=== PATIENT | male | born 1940 | race Caucasian/White ===

== ENCOUNTER → 2022-05-05 | Emergency (ER) | payer SELFPAY | LOC: ER 09:30 | DX: Z53.21 Procedure and treatment not carried out due to patient leaving prior to being seen by health care provider (principal) ==

== ENCOUNTER 2022-09-28 11:46 | Inpatient (IN) | payer MEDICARE, MEDICAID ==
[~2022-09-28] VITALS: Ht 170.2 cm; Wt 86.3 kg
[2022-09-28] MEDS: DEXT 5%/0.45% NACL 1000ML 1,000 ML IV SCH (14:00)
[2022-09-28] MEDS ORDERED: ACETAMINOPHEN 650MG/20.3ML UDC GT PRN (14:00)
[2022-09-28] MEDS ORDERED: ACETAMINOPHEN 650MG SUPP PR PRN (14:00)
[2022-09-28] MEDS ORDERED: LORAZEPAM 2MG/ML CPJ IV PRN (14:00)
[2022-09-28] MEDS ORDERED: IPRATROPIUM/ALBUTEROL 0.5-3(2.5)MG/3ML NEB NEB PRN (14:00)
[2022-09-28] MEDS: THIAMINE HCL 100MG TABLET PO SCH (14:00)
[2022-09-28] MEDS ORDERED: DIPHENHYDRAMINE 50MG/ML VIAL IV PRN (14:00)
[2022-09-28 15:36] LABS: BASOPHILS % 0.7 % (0.0-2.0); EOSINOPHILS % 0.4 % (0.0-5.0); HEMATOCRIT. 31.4 % (42.0-52.0); HEMOGLOBIN. 10.1 g/dL (14.0-18.0); LYMPHOCYTES % 26.4 % (20.0-50.0); MEAN CORPUSCULAR HEMOGLOBIN 28.3 pg (28.0-32.0); MEAN CORPUSCULAR VOLUME 87.6 fL (80.0-94.0); MONOCYTES % 11.7 % (2.0-8.0); NEUTROPHILS % 60.8 % (40.0-76.0); PLATELET 304 x1000/uL (130-400); RED BLOOD CELL COUNT 3.58 mill/uL (4.7-6.1); RED CELL DISTRIBUTION WIDTH 19.1 % (11.6-14.6)
[2022-09-29 03:08] VITALS: BP 132/68
[2022-09-29] MEDS: ACETAMINOPHEN 325MG TABLET PO PRN (06:42)
[2022-09-29] MEDS ORDERED: DEXTROSE 50% WATER 50ML SYRINGE IV PRN (07:00)
[2022-09-29] MEDS: BLOOD SUGAR DIAGNOSTIC STRIP TEST SCH ×4 (07:20→20:37)
[2022-09-29] MEDS: INSULIN LISPRO 100 UNITS/ML SUBCUT SCH ×4 (07:50→20:37)
[2022-09-29 08:00] VITALS: BP 133/68
[2022-09-29] MEDS ORDERED: ENOXAPARIN 30MG/0.3ML SYR SUBCUT SCH (09:00)
[2022-09-29] MEDS ORDERED: ASPIRIN 81MG EC TABLET PO SCH (09:00)
[2022-09-29 09:15] LABS: BASOPHILS % 0.5 % (0.0-2.0); EOSINOPHILS % 0.7 % (0.0-5.0); HEMATOCRIT. 24.3 % (42.0-52.0); HEMOGLOBIN. 8.3 g/dL (14.0-18.0); LYMPHOCYTES % 19.6 % (20.0-50.0); MEAN CORPUSCULAR HEMOGLOBIN 29.4 pg (28.0-32.0); MEAN CORPUSCULAR VOLUME 85.6 fL (80.0-94.0); MEAN PLATELET VOLUME 8.2 fl (7.4-10.4); MONOCYTES % 10.7 % (2.0-8.0); NEUTROPHILS % 68.5 % (40.0-76.0); PLATELET 286 x1000/uL (130-400); RED BLOOD CELL COUNT 2.84 mill/uL (4.7-6.1); RED CELL DISTRIBUTION WIDTH 18.7 % (11.6-14.6)
[2022-09-29] MEDS: DEXT 5%/0.45% NACL 1000ML 1,000 ML IV SCH (10:00)
[2022-09-29] MEDS: FOLIC ACID 1MG TABLET PO SCH (10:32)
[2022-09-29] MEDS: THIAMINE HCL 100MG TABLET PO SCH (10:32)
[2022-09-29 12:00] VITALS: BP 118/74
[2022-09-29] MEDS: HYDROCODONE/ACETAMINOPHEN 5/325MG TABLET PO PRN ×2 (13:59→20:12)
[2022-09-29] MEDS ORDERED: MAGNESIUM 1 G PREMIX 100 ML IV NR (16:00)
[2022-09-29 16:11] VITALS: BP 123/68
[2022-09-29] MEDS ORDERED: GADOTERATE MEGLUMINE 5 MMOL/10 ML VIAL IV ONE (19:59)
[2022-09-29 20:00] VITALS: BP 127/67
[2022-09-29] MEDS ORDERED: NALOXONE HCL 0.4MG/ML VIAL IV PRN (21:00)
[2022-09-29 21:08] LABS: INR 1.4; PROTHROMBIN TIME 14.6 sec (9.6-11.0)
[2022-09-30] VITALS: BP 117/70
[2022-09-30 04:00] VITALS: BP 110/67
[2022-09-30] MEDS: HYDROCODONE/ACETAMINOPHEN 10/325MG TABLET PO PRN (06:45)
[2022-09-30] MEDS: DEXAMETHASONE 4MG TABLET PO SCH ×5 (06:45→23:58)
[2022-09-30] MEDS: INSULIN LISPRO 100 UNITS/ML SUBCUT SCH ×4 (07:50→22:15)
[2022-09-30 08:00] VITALS: BP 96/54
[2022-09-30] MEDS: THIAMINE HCL 100MG TABLET PO SCH (08:05)
[2022-09-30] MEDS: FOLIC ACID 1MG TABLET PO SCH (08:05)
[2022-09-30] MEDS: BLOOD SUGAR DIAGNOSTIC STRIP TEST SCH ×4 (08:06→20:49)
[2022-09-30] MEDS: DEXT 5%/0.45% NACL 1000ML 1,000 ML IV SCH (08:07)
[2022-09-30 08:10] LABS: BASOPHILS % 0.5 % (0.0-2.0); EOSINOPHILS % 0.9 % (0.0-5.0); HEMOGLOBIN. 8.5 g/dL (14.0-18.0); LYMPHOCYTES % 19.3 % (20.0-50.0); MEAN CORPUSCULAR HEMOGLOBIN 28.6 pg (28.0-32.0); MEAN CORPUSCULAR VOLUME 87.1 fL (80.0-94.0); MONOCYTES % 9.5 % (2.0-8.0); NEUTROPHILS % 69.8 % (40.0-76.0); PLATELET 301 x1000/uL (130-400); RED BLOOD CELL COUNT 2.98 mill/uL (4.7-6.1); RED CELL DISTRIBUTION WIDTH 19.4 % (11.6-14.6)
[2022-09-30] MEDS ORDERED: LIDOCAINE HCL 1% 10 MG/ML 10ML VIAL ONE (09:30)
[2022-09-30 12:00] VITALS: BP 120/70
[2022-09-30] MEDS: SODIUM CHLORIDE 0.9% 1,000 ML IV SCH (13:30)
[2022-09-30 16:00] VITALS: BP 110/64
[2022-09-30] MEDS ORDERED: ALBUTEROL (0.083%) 2.5MG/3ML NEB HHN PRN (17:00)
[2022-09-30] MEDS ORDERED: IPRATROPIUM BROMIDE (0.02%) 0.5MG/2.5ML NEB HHN PRN (17:00)
[2022-09-30 20:00] VITALS: BP 115/64
[2022-10-01 00:10] VITALS: BP 110/57
[2022-10-01] MEDS ORDERED: VANCOMYCIN 1500MG in DEXTROSE 5% WATER 250ML IV NR (01:00)
[2022-10-01] MEDS: ACETYLCYSTEINE 200MG/ML 20% VIAL 4ML INH SCH ×2 (01:15→16:50)
[2022-10-01 04:00] VITALS: BP 111/59
[2022-10-01] MEDS: HYDROCODONE/ACETAMINOPHEN 10/325MG TABLET PO PRN ×2 (05:46→23:08)
[2022-10-01] MEDS: DEXAMETHASONE 4MG TABLET PO SCH ×4 (05:46→23:53)
[2022-10-01] MEDS: SODIUM CHLORIDE 0.9% 1,000 ML IV SCH (05:47)
[2022-10-01] MEDS: BLOOD SUGAR DIAGNOSTIC STRIP TEST SCH ×4 (05:47→21:22)
[2022-10-01 06:32] LABS: PROSTRATE SPECIFIC AG TOTAL 2.36 ng/mL (0.0-4.0)
[2022-10-01 06:33] LABS: CARCINO EMBRYONIC ANTIGEN 0.6 ng/ml
[2022-10-01] MEDS: INSULIN LISPRO 100 UNITS/ML SUBCUT SCH ×4 (07:59→21:12)
[2022-10-01 08:00] VITALS: BP 131/71
[2022-10-01] MEDS: LIDOCAINE 5% PATCH TOP SCH (08:42)
[2022-10-01] MEDS: THIAMINE HCL 100MG TABLET PO SCH (08:42)
[2022-10-01] MEDS: LEVOTHYROXINE SODIUM 25MCG TABLET PO SCH (08:42)
[2022-10-01] MEDS: FOLIC ACID 1MG TABLET PO SCH (08:42)
[2022-10-01 12:00] VITALS: BP 135/68
[2022-10-01] MEDS ORDERED: SODIUM CHLORIDE 3% FOR INH 4ML UD NEB INH SCH (13:00)
[2022-10-01] MEDS: ALBUTEROL (0.083%) 2.5MG/3ML NEB HHN SCH ×3 (14:07→21:21)
[2022-10-01] MEDS: IPRATROPIUM BROMIDE (0.02%) 0.5MG/2.5ML NEB HHN SCH ×3 (14:07→21:20)
[2022-10-01] MEDS ORDERED: CEFTRIAXONE 1,000 MG in DEXTROSE 5% WATER 50 ML IV SCH (15:30)
[2022-10-01] MEDS: AZITHROMYCIN 500 MG in DEXT 5% WATER 250 ML IV SCH (15:37)
[2022-10-01 16:00] VITALS: BP 135/77
[2022-10-01 20:00] VITALS: BP 132/64
[2022-10-01] MEDS: METRONIDAZOLE 500MG TABLET PO SCH (21:11)
[2022-10-01] MEDS: CEFEPIME 2,000 MG in DEXT 5% WATER 100 ML IV SCH (22:17)
[2022-10-02] VITALS: BP 126/56
[2022-10-02] MEDS: ALBUTEROL (0.083%) 2.5MG/3ML NEB HHN SCH ×6 (01:15→22:21)
[2022-10-02] MEDS: IPRATROPIUM BROMIDE (0.02%) 0.5MG/2.5ML NEB HHN SCH ×3 (01:15→22:22)
[2022-10-02] MEDS: ACETYLCYSTEINE 200MG/ML 20% VIAL 4ML INH SCH ×2 (01:50→10:10)
[2022-10-02] MEDS ORDERED: VANCOMYCIN 1G PREMIX 200 ML IV SCH (02:00)
[2022-10-02] MEDS: SODIUM CHLORIDE 0.9% 1,000 ML IV SCH (03:45)
[2022-10-02 04:00] VITALS: BP 125/65
[2022-10-02] MEDS: DEXAMETHASONE 4MG TABLET PO SCH ×4 (05:05→22:53)
[2022-10-02] MEDS: DOCUSATE SODIUM 100MG CAPSULE PO PRN (05:05)
[2022-10-02] MEDS: METRONIDAZOLE 500MG TABLET PO SCH ×3 (05:05→20:31)
[2022-10-02] MEDS: BLOOD SUGAR DIAGNOSTIC STRIP TEST SCH ×4 (05:59→20:57)
[2022-10-02 08:00] VITALS: BP 140/67
[2022-10-02] MEDS: INSULIN LISPRO 100 UNITS/ML SUBCUT SCH ×4 (08:10→21:00)
[2022-10-02] MEDS: CEFEPIME 2,000 MG in DEXT 5% WATER 100 ML IV SCH ×2 (08:17→20:31)
[2022-10-02] MEDS: LEVOTHYROXINE SODIUM 25MCG TABLET PO SCH (08:18)
[2022-10-02] MEDS: FOLIC ACID 1MG TABLET PO SCH (08:18)
[2022-10-02] MEDS: LIDOCAINE 5% PATCH TOP SCH (08:18)
[2022-10-02] MEDS: THIAMINE HCL 100MG TABLET PO SCH (08:18)
[2022-10-02 09:00] LABS: BASOPHILS % 0.1 % (0.0-2.0); HEMATOCRIT. 23.4 % (42.0-52.0); HEMOGLOBIN. 7.9 g/dL (14.0-18.0); LYMPHOCYTES % 10.9 % (20.0-50.0); MEAN CORPUSCULAR VOLUME 85.5 fL (80.0-94.0); MEAN PLATELET VOLUME 8.5 fl (7.4-10.4); MONOCYTES % 3.4 % (2.0-8.0); NEUTROPHILS % 85.6 % (40.0-76.0); PLATELET 319 x1000/uL (130-400); RED BLOOD CELL COUNT 2.74 mill/uL (4.7-6.1); RED CELL DISTRIBUTION WIDTH 18.5 % (11.6-14.6)
[2022-10-02 09:10] LABS: IMMUNOGLOBULIN A 708 mg/dL (61-437); IMMUNOGLOBULIN G 1478 mg/dL (603-1613); IMMUNOGLOBULIN M 47 mg/dL (15-143)
[2022-10-02 12:00] VITALS: BP 137/71
[2022-10-02] MEDS ORDERED: VANCOMYCIN 1500MG in DEXTROSE 5% WATER 250ML IV SCH (13:00)
[2022-10-02] MEDS: AZITHROMYCIN 500 MG in DEXT 5% WATER 250 ML IV SCH (15:52)
[2022-10-02 16:00] VITALS: BP 126/75
[2022-10-02 20:00] VITALS: BP 128/67
[2022-10-03] VITALS: BP 135/66
[2022-10-03] MEDS: ALBUTEROL (0.083%) 2.5MG/3ML NEB HHN SCH ×6 (01:51→20:48)
[2022-10-03] MEDS: IPRATROPIUM BROMIDE (0.02%) 0.5MG/2.5ML NEB HHN SCH ×6 (01:52→20:48)
[2022-10-03 04:00] VITALS: BP 130/70
[2022-10-03] MEDS: METRONIDAZOLE 500MG TABLET PO SCH ×3 (05:41→21:37)
[2022-10-03] MEDS: DEXAMETHASONE 4MG TABLET PO SCH ×3 (05:41→19:08)
[2022-10-03 08:00] VITALS: BP 140/72
[2022-10-03] MEDS: BLOOD SUGAR DIAGNOSTIC STRIP TEST SCH ×4 (08:00→21:37)
[2022-10-03] MEDS: INSULIN LISPRO 100 UNITS/ML SUBCUT SCH ×4 (08:01→21:37)
[2022-10-03] MEDS: LIDOCAINE 5% PATCH TOP SCH (08:50)
[2022-10-03] MEDS: LEVOTHYROXINE SODIUM 25MCG TABLET PO SCH (08:51)
[2022-10-03] MEDS: CEFEPIME 2,000 MG in DEXT 5% WATER 100 ML IV SCH ×2 (08:51→21:36)
[2022-10-03] MEDS: THIAMINE HCL 100MG TABLET PO SCH (09:06)
[2022-10-03] MEDS: FOLIC ACID 1MG TABLET PO SCH (09:08)
[2022-10-03] MEDS: ACETYLCYSTEINE 200MG/ML 20% VIAL 4ML INH SCH ×2 (10:25→16:29)
[2022-10-03 12:00] VITALS: BP 141/72
[2022-10-03] MEDS: AZITHROMYCIN 500 MG in DEXT 5% WATER 250 ML IV SCH (14:30)
[2022-10-03 16:00] VITALS: BP 148/72
[2022-10-03 20:00] VITALS: BP 140/74
[2022-10-03] MEDS: ACETAMINOPHEN 325MG TABLET PO PRN (21:37)
[2022-10-04] VITALS: BP 140/72
[2022-10-04] MEDS: IPRATROPIUM BROMIDE (0.02%) 0.5MG/2.5ML NEB HHN SCH ×6 (00:54→20:13)
[2022-10-04] MEDS: ALBUTEROL (0.083%) 2.5MG/3ML NEB HHN SCH ×6 (00:54→20:14)
[2022-10-04] MEDS: ACETYLCYSTEINE 200MG/ML 20% VIAL 4ML INH SCH ×3 (00:54→17:25)
[2022-10-04 04:00] VITALS: BP 155/81
[2022-10-04] MEDS: DEXAMETHASONE 4MG TABLET PO SCH ×5 (06:34→23:41)
[2022-10-04] MEDS: METRONIDAZOLE 500MG TABLET PO SCH ×3 (06:34→21:00)
[2022-10-04] MEDS: BLOOD SUGAR DIAGNOSTIC STRIP TEST SCH ×4 (06:35→21:01)
[2022-10-04 07:17] LABS: HEMATOCRIT. 27.6 % (42.0-52.0); MEAN CORPUSCULAR HEMOGLOBIN 28.6 pg (28.0-32.0); MEAN CORPUSCULAR VOLUME 87.5 fL (80.0-94.0); MEAN PLATELET VOLUME 9.3 fl (7.4-10.4); PLATELET 325 x1000/uL (130-400); RED BLOOD CELL COUNT 3.16 mill/uL (4.7-6.1)
[2022-10-04 07:31] LABS: CHLORIDE 101 mEq/L (98-107)
[2022-10-04 08:01] VITALS: BP 163/84
[2022-10-04] MEDS: INSULIN LISPRO 100 UNITS/ML SUBCUT SCH ×4 (08:10→21:00)
[2022-10-04] MEDS: LIDOCAINE 5% PATCH TOP SCH (08:40)
[2022-10-04] MEDS: CEFEPIME 2,000 MG in DEXT 5% WATER 100 ML IV SCH ×2 (08:40→21:00)
[2022-10-04] MEDS: FOLIC ACID 1MG TABLET PO SCH (08:41)
[2022-10-04] MEDS: LEVOTHYROXINE SODIUM 25MCG TABLET PO SCH (08:41)
[2022-10-04] MEDS: THIAMINE HCL 100MG TABLET PO SCH (08:41)
[2022-10-04 11:55] VITALS: BP 115/73
[2022-10-04] MEDS: AZITHROMYCIN 500 MG in DEXT 5% WATER 250 ML IV SCH (14:44)
[2022-10-04] MEDS ORDERED: VANCOMYCIN 1G PREMIX 200 ML IV NR (15:00)
[2022-10-04 15:31] VITALS: BP 160/73
[2022-10-04 16:16] LABS: PLATELET ESTIMATE NORMAL
[2022-10-04] MEDS ORDERED: CLONIDINE 0.1MG TABLET PO PRN ×2 (16:45)
[2022-10-04 20:00] VITALS: BP 137/79
[2022-10-05] VITALS: BP 160/87
[2022-10-05] MEDS: ALBUTEROL (0.083%) 2.5MG/3ML NEB HHN SCH ×6 (00:56→21:18)
[2022-10-05] MEDS: IPRATROPIUM BROMIDE (0.02%) 0.5MG/2.5ML NEB HHN SCH ×6 (00:56→21:18)
[2022-10-05] MEDS: ACETYLCYSTEINE 200MG/ML 20% VIAL 4ML INH SCH (00:57)
[2022-10-05 04:00] VITALS: BP 159/85
[2022-10-05] MEDS: METRONIDAZOLE 500MG TABLET PO SCH ×4 (06:00→21:37)
[2022-10-05] MEDS: DEXAMETHASONE 4MG TABLET PO SCH ×4 (06:00→18:04)
[2022-10-05] MEDS: BLOOD SUGAR DIAGNOSTIC STRIP TEST SCH ×4 (06:26→21:37)
[2022-10-05 07:15] LABS: HEMATOCRIT. 29.5 % (42.0-52.0); HEMOGLOBIN. 9.8 g/dL (14.0-18.0); MEAN CORPUSCULAR HEMOGLOBIN 28.3 pg (28.0-32.0); MEAN CORPUSCULAR VOLUME 85.5 fL (80.0-94.0); MEAN PLATELET VOLUME 8.4 fl (7.4-10.4); PLATELET 324 x1000/uL (130-400); RED BLOOD CELL COUNT 3.45 mill/uL (4.7-6.1); RED CELL DISTRIBUTION WIDTH 18.4 % (11.6-14.6)
[2022-10-05 07:55] VITALS: BP 163/83
[2022-10-05] MEDS: INSULIN LISPRO 100 UNITS/ML SUBCUT SCH ×4 (08:10→21:38)
[2022-10-05] MEDS: CEFEPIME 2,000 MG in DEXT 5% WATER 100 ML IV SCH ×2 (10:34→21:36)
[2022-10-05] MEDS: LIDOCAINE 5% PATCH TOP SCH (10:37)
[2022-10-05] MEDS: FOLIC ACID 1MG TABLET PO SCH (10:37)
[2022-10-05] MEDS: THIAMINE HCL 100MG TABLET PO SCH (10:37)
[2022-10-05] MEDS: LEVOTHYROXINE SODIUM 25MCG TABLET PO SCH (10:37)
[2022-10-05] MEDS: MEGESTROL ACETATE 40MG TABLET PO SCH (11:09)
[2022-10-05 12:42] VITALS: BP 166/85
[2022-10-05] MEDS ORDERED: NALOXONE HCL 0.4MG/ML VIAL IV PRN (13:00)
[2022-10-05] MEDS: HYDROCODONE/ACETAMINOPHEN 5/325MG TABLET PO SCH ×2 (13:01→21:36)
[2022-10-05] MEDS: MORPHINE SULFATE 2 MG/ML CPJ (NOT FOR IM USE) IV PRN (13:01)
[2022-10-05] MEDS: LACTULOSE 20G/30ML UDC PO SCH ×2 (13:10→21:36)
[2022-10-05] MEDS ORDERED: BISACODYL 10MG SUPP PR NR (13:30)
[2022-10-05] MEDS: AZITHROMYCIN 500 MG in DEXT 5% WATER 250 ML IV SCH (16:10)
[2022-10-05 16:27] VITALS: BP 141/92
[2022-10-05] MEDS: ACETAMINOPHEN 325MG TABLET PO PRN (18:03)
[2022-10-05 20:06] VITALS: BP 130/76
[2022-10-05 20:40] LABS: PLATELET ESTIMATE NORMAL
[2022-10-06 00:17] VITALS: BP 138/75
[2022-10-06] MEDS: ALBUTEROL (0.083%) 2.5MG/3ML NEB HHN SCH ×6 (00:45→20:51)
[2022-10-06] MEDS: IPRATROPIUM BROMIDE (0.02%) 0.5MG/2.5ML NEB HHN SCH ×6 (00:45→20:51)
[2022-10-06] MEDS: ACETYLCYSTEINE 200MG/ML 20% VIAL 4ML INH SCH ×2 (00:46→09:45)
[2022-10-06 04:00] VITALS: BP 133/72
[2022-10-06] MEDS: LACTULOSE 20G/30ML UDC PO SCH ×3 (06:28→21:15)
[2022-10-06] MEDS: METRONIDAZOLE 500MG TABLET PO SCH ×3 (06:28→21:16)
[2022-10-06] MEDS: BLOOD SUGAR DIAGNOSTIC STRIP TEST SCH ×4 (06:29→21:00)
[2022-10-06] MEDS: HYDROCODONE/ACETAMINOPHEN 5/325MG TABLET PO SCH ×3 (06:29→21:18)
[2022-10-06] MEDS: INSULIN LISPRO 100 UNITS/ML SUBCUT SCH ×4 (07:42→21:00)
[2022-10-06 08:00] VITALS: BP 126/72
[2022-10-06] MEDS: FOLIC ACID 1MG TABLET PO SCH (09:33)
[2022-10-06] MEDS: CEFEPIME 2,000 MG in DEXT 5% WATER 100 ML IV SCH (09:33)
[2022-10-06] MEDS: THIAMINE HCL 100MG TABLET PO SCH (09:34)
[2022-10-06] MEDS: MEGESTROL ACETATE 40MG TABLET PO SCH (09:34)
[2022-10-06] MEDS: LEVOTHYROXINE SODIUM 25MCG TABLET PO SCH (09:34)
[2022-10-06] MEDS: LIDOCAINE 5% PATCH TOP SCH (09:34)
[2022-10-06] MEDS: DEXAMETHASONE 4MG TABLET PO SCH ×2 (09:35→17:16)
[2022-10-06 12:00] VITALS: BP 137/78
[2022-10-06] MEDS: VANCOMYCIN 1.25GM PMX (XELLIA) 250 ML IV SCH (12:27)
[2022-10-06 16:00] VITALS: BP 135/75
[2022-10-06 20:00] VITALS: BP 128/69
[2022-10-07] VITALS: BP 125/69
[2022-10-07] MEDS: ALBUTEROL (0.083%) 2.5MG/3ML NEB HHN SCH ×6 (00:39→20:56)
[2022-10-07] MEDS: IPRATROPIUM BROMIDE (0.02%) 0.5MG/2.5ML NEB HHN SCH ×6 (00:40→20:56)
[2022-10-07] MEDS: ACETYLCYSTEINE 200MG/ML 20% VIAL 4ML INH SCH (00:40)
[2022-10-07 04:30] VITALS: BP 152/83
[2022-10-07] MEDS: LACTULOSE 20G/30ML UDC PO SCH ×3 (05:25→21:18)
[2022-10-07] MEDS: HYDROCODONE/ACETAMINOPHEN 5/325MG TABLET PO SCH ×3 (05:29→21:19)
[2022-10-07] MEDS: BLOOD SUGAR DIAGNOSTIC STRIP TEST SCH ×4 (06:44→20:21)
[2022-10-07 08:00] VITALS: BP_SYST 124; BP_SYST 130; BP_DIAS 67; BP_DIAS 74
[2022-10-07] MEDS: INSULIN LISPRO 100 UNITS/ML SUBCUT SCH ×4 (08:10→21:18)
[2022-10-07] MEDS: DEXAMETHASONE 4MG TABLET PO SCH ×2 (09:33→17:42)
[2022-10-07] MEDS: MEGESTROL ACETATE 40MG TABLET PO SCH (09:34)
[2022-10-07] MEDS: FOLIC ACID 1MG TABLET PO SCH (09:34)
[2022-10-07] MEDS: THIAMINE HCL 100MG TABLET PO SCH (09:34)
[2022-10-07] MEDS: LEVOTHYROXINE SODIUM 25MCG TABLET PO SCH (09:34)
[2022-10-07] MEDS: LIDOCAINE 5% PATCH TOP SCH (09:36)
[2022-10-07 12:00] VITALS: BP 124/67
[2022-10-07] MEDS: CEFEPIME 2,000 MG in DEXT 5% WATER 100 ML IV SCH ×2 (14:32→22:36)
[2022-10-07] MEDS: METRONIDAZOLE 500MG TABLET PO SCH ×2 (14:34→21:18)
[2022-10-07 16:00] VITALS: BP 128/72
[2022-10-07 20:34] VITALS: BP 130/74
[2022-10-08] VITALS: BP 106/50
[2022-10-08] MEDS: IPRATROPIUM BROMIDE (0.02%) 0.5MG/2.5ML NEB HHN SCH ×6 (00:18→20:00)
[2022-10-08] MEDS: ALBUTEROL (0.083%) 2.5MG/3ML NEB HHN SCH ×6 (00:18→20:00)
[2022-10-08 04:09] VITALS: BP 128/66
[2022-10-08] MEDS: LACTULOSE 20G/30ML UDC PO SCH ×3 (05:13→20:56)
[2022-10-08] MEDS: METRONIDAZOLE 500MG TABLET PO SCH ×3 (05:13→20:54)
[2022-10-08] MEDS: HYDROCODONE/ACETAMINOPHEN 5/325MG TABLET PO SCH ×3 (05:13→20:54)
[2022-10-08 06:32] LABS: HEMATOCRIT. 30.2 % (42.0-52.0); HEMOGLOBIN. 9.9 g/dL (14.0-18.0); MEAN CORPUSCULAR HEMOGLOBIN 28.6 pg (28.0-32.0); MEAN CORPUSCULAR VOLUME 87.7 fL (80.0-94.0); MEAN PLATELET VOLUME 8.1 fl (7.4-10.4); PLATELET 270 x1000/uL (130-400); RED BLOOD CELL COUNT 3.44 mill/uL (4.7-6.1); RED CELL DISTRIBUTION WIDTH 20.4 % (11.6-14.6)
[2022-10-08] MEDS: BLOOD SUGAR DIAGNOSTIC STRIP TEST SCH ×3 (06:53→20:12)
[2022-10-08 08:00] VITALS: BP 140/80
[2022-10-08] MEDS: THIAMINE HCL 100MG TABLET PO SCH (08:10)
[2022-10-08] MEDS: FOLIC ACID 1MG TABLET PO SCH (08:10)
[2022-10-08] MEDS: LEVOTHYROXINE SODIUM 25MCG TABLET PO SCH (08:10)
[2022-10-08] MEDS: INSULIN LISPRO 100 UNITS/ML SUBCUT SCH ×3 (08:10→20:12)
[2022-10-08] MEDS: MEGESTROL ACETATE 40MG TABLET PO SCH (08:11)
[2022-10-08] MEDS: LIDOCAINE 5% PATCH TOP SCH (08:11)
[2022-10-08] MEDS: DEXAMETHASONE 4MG TABLET PO SCH ×2 (08:11→16:36)
[2022-10-08] MEDS: CEFEPIME 2,000 MG in DEXT 5% WATER 100 ML IV SCH ×2 (08:21→20:29)
[2022-10-08 12:00] VITALS: BP 131/75
[2022-10-08] MEDS: VANCOMYCIN 1.25GM PMX (XELLIA) 250 ML IV SCH (12:58)
[2022-10-08 14:13] LABS: NUCLEATED RED BLOOD CELLS 1 /100 WBC
[2022-10-08 14:14] LABS: PLATELET ESTIMATE NORMAL
[2022-10-08 16:00] VITALS: BP 138/76
[2022-10-08 20:30] VITALS: BP 124/71
[2022-10-09] VITALS: BP 116/77
[2022-10-09 04:00] VITALS: BP 126/76
[2022-10-09] MEDS: ALBUTEROL (0.083%) 2.5MG/3ML NEB HHN SCH ×6 (04:00→21:17)
[2022-10-09] MEDS: IPRATROPIUM BROMIDE (0.02%) 0.5MG/2.5ML NEB HHN SCH ×6 (04:00→21:17)
[2022-10-09] MEDS: HYDROCODONE/ACETAMINOPHEN 5/325MG TABLET PO SCH ×3 (05:32→21:42)
[2022-10-09] MEDS: LACTULOSE 20G/30ML UDC PO SCH ×3 (05:32→21:41)
[2022-10-09] MEDS: METRONIDAZOLE 500MG TABLET PO SCH ×3 (05:33→21:41)
[2022-10-09] MEDS: BLOOD SUGAR DIAGNOSTIC STRIP TEST SCH ×4 (06:40→20:36)
[2022-10-09 07:49] VITALS: BP 144/75
[2022-10-09] MEDS: INSULIN LISPRO 100 UNITS/ML SUBCUT SCH ×4 (07:57→20:36)
[2022-10-09] MEDS: FOLIC ACID 1MG TABLET PO SCH (09:00)
[2022-10-09] MEDS: THIAMINE HCL 100MG TABLET PO SCH (10:11)
[2022-10-09] MEDS: LEVOTHYROXINE SODIUM 25MCG TABLET PO SCH (10:11)
[2022-10-09] MEDS: LIDOCAINE 5% PATCH TOP SCH (10:11)
[2022-10-09] MEDS: DEXAMETHASONE 4MG TABLET PO SCH (10:11)
[2022-10-09] MEDS: CEFEPIME 2,000 MG in DEXT 5% WATER 100 ML IV SCH ×2 (10:11→20:29)
[2022-10-09] MEDS: MEGESTROL ACETATE 40MG TABLET PO SCH (10:12)
[2022-10-09] MEDS: MORPHINE SULFATE 2 MG/ML CPJ (NOT FOR IM USE) IV PRN (10:27)
[2022-10-09 11:49] VITALS: BP 147/75
[2022-10-09] MEDS: MAGNESIUM/ALUMINUM HYDROXIDE/SIMETHICONE 30ML UDC PO SCH ×2 (13:33→19:15)
[2022-10-09] MEDS: DOCUSATE SODIUM 100MG CAPSULE PO PRN (13:34)
[2022-10-09] MEDS: PANTOPRAZOLE SODIUM 40 MG/VIAL IV SCH (13:35)
[2022-10-09 15:59] VITALS: BP 133/86
[2022-10-09] MEDS: ONDANSETRON HCL 4MG/2ML INJ IV PRN ×2 (17:02→23:20)
[2022-10-09 20:00] VITALS: BP 130/79
[2022-10-10] VITALS: BP 135/79
[2022-10-10] MEDS: IPRATROPIUM BROMIDE (0.02%) 0.5MG/2.5ML NEB HHN SCH ×4 (00:16→11:17)
[2022-10-10] MEDS: ALBUTEROL (0.083%) 2.5MG/3ML NEB HHN SCH ×6 (00:16→21:25)
[2022-10-10] MEDS: MAGNESIUM/ALUMINUM HYDROXIDE/SIMETHICONE 30ML UDC PO SCH ×5 (01:18→21:32)
[2022-10-10 04:00] VITALS: BP 123/78
[2022-10-10] MEDS: METRONIDAZOLE 500MG TABLET PO SCH ×3 (06:00→21:32)
[2022-10-10] MEDS: HYDROCODONE/ACETAMINOPHEN 5/325MG TABLET PO SCH (06:00)
[2022-10-10] MEDS: LACTULOSE 20G/30ML UDC PO SCH ×3 (06:00→21:31)
[2022-10-10] MEDS: BLOOD SUGAR DIAGNOSTIC STRIP TEST SCH (06:02)
[2022-10-10] MEDS: INSULIN LISPRO 100 UNITS/ML SUBCUT SCH (06:04)
[2022-10-10 08:00] VITALS: BP 157/98
[2022-10-10] MEDS ORDERED: DEXAMETHASONE 4MG TABLET PO SCH (08:00)
[2022-10-10] MEDS: THIAMINE HCL 100MG TABLET PO SCH (09:00)
[2022-10-10] MEDS: MEGESTROL ACETATE 40MG TABLET PO SCH (09:00)
[2022-10-10] MEDS: FOLIC ACID 1MG TABLET PO SCH (09:00)
[2022-10-10] MEDS: LEVOTHYROXINE SODIUM 25MCG TABLET PO SCH (09:00)
[2022-10-10] MEDS: CEFEPIME 2,000 MG in DEXT 5% WATER 100 ML IV SCH ×2 (09:18→21:31)
[2022-10-10] MEDS: ONDANSETRON HCL 4MG/2ML INJ IV PRN ×2 (09:19→18:00)
[2022-10-10] MEDS: PANTOPRAZOLE SODIUM 40 MG/VIAL IV SCH (09:19)
[2022-10-10] MEDS: LIDOCAINE 5% PATCH TOP SCH (09:21)
[2022-10-10 12:00] VITALS: BP 131/81
[2022-10-10 12:14] LABS: HEMATOCRIT. 31.5 % (42.0-52.0); HEMOGLOBIN. 10.2 g/dL (14.0-18.0); MEAN CORPUSCULAR HEMOGLOBIN 28.6 pg (28.0-32.0); MEAN CORPUSCULAR VOLUME 88.3 fL (80.0-94.0); MEAN PLATELET VOLUME 8.2 fl (7.4-10.4); PLATELET 186 x1000/uL (130-400); RED BLOOD CELL COUNT 3.57 mill/uL (4.7-6.1); RED CELL DISTRIBUTION WIDTH 22.1 % (11.6-14.6)
[2022-10-10 13:01] LABS: NUCLEATED RED BLOOD CELLS 1 /100 WBC
[2022-10-10] MEDS: VANCOMYCIN 1.25GM PMX (XELLIA) 250 ML IV SCH (13:01)
[2022-10-10 13:02] LABS: PLATELET ESTIMATE NORMAL
[2022-10-10 16:00] VITALS: BP 135/85
[2022-10-10] MEDS ORDERED: DEXT 5%/0.9% NACL 1,000 ML IV SCH (16:15)
[2022-10-10 20:33] VITALS: BP 128/76
[2022-10-10] MEDS ORDERED: NALOXONE HCL 0.4MG/ML VIAL IV PRN (22:45)
[2022-10-10] MEDS: MORPHINE SULFATE 2 MG/ML CPJ (NOT FOR IM USE) IV PRN (22:47)
[2022-10-11] VITALS (43 sets, daily range): BP systolic 86–147; BP diastolic 39–85
[2022-10-11] MEDS: ALBUTEROL (0.083%) 2.5MG/3ML NEB HHN SCH ×5 (01:32→15:45)
[2022-10-11] MEDS: ONDANSETRON HCL 4MG/2ML INJ IV PRN (05:04)
[2022-10-11] MEDS: MAGNESIUM/ALUMINUM HYDROXIDE/SIMETHICONE 30ML UDC PO SCH ×3 (05:05→19:15)
[2022-10-11] MEDS: MORPHINE SULFATE 2 MG/ML CPJ (NOT FOR IM USE) IV PRN ×2 (05:05→15:00)
[2022-10-11] MEDS: METRONIDAZOLE 500MG TABLET PO SCH (05:05)
[2022-10-11] MEDS: LACTULOSE 20G/30ML UDC PO SCH ×3 (05:05→21:16)
[2022-10-11 05:45] LABS: HEMATOCRIT. 30.6 % (42.0-52.0); MEAN CORPUSCULAR HEMOGLOBIN 28.9 pg (28.0-32.0); MEAN CORPUSCULAR VOLUME 88.7 fL (80.0-94.0); MEAN PLATELET VOLUME 8.8 fl (7.4-10.4); PLATELET 172 x1000/uL (130-400); RED BLOOD CELL COUNT 3.45 mill/uL (4.7-6.1); RED CELL DISTRIBUTION WIDTH 22.9 % (11.6-14.6)
[2022-10-11] MEDS ORDERED: MIDODRINE HCL 5MG TABLET PO SCH (07:30)
[2022-10-11] MEDS: MEGESTROL ACETATE 40MG TABLET PO SCH (09:00)
[2022-10-11] MEDS: THIAMINE HCL 100MG TABLET PO SCH (09:00)
[2022-10-11] MEDS: LEVOTHYROXINE SODIUM 25MCG TABLET PO SCH (09:00)
[2022-10-11] MEDS: CEFEPIME 2,000 MG in DEXT 5% WATER 100 ML IV SCH ×2 (09:25→21:15)
[2022-10-11] MEDS: PANTOPRAZOLE SODIUM 40 MG/VIAL IV SCH (09:26)
[2022-10-11] MEDS: LIDOCAINE 5% PATCH TOP SCH (09:26)
[2022-10-11] MEDS: NOREPINEPHRINE 32 MG in DEXTROSE 5% WATER 250 ML IV PRN (10:16)
[2022-10-11] MEDS: SODIUM CHLORIDE 0.9% 1,000 ML IV SCH ×2 (10:45→21:16)
[2022-10-11 11:32] LABS: PLATELET ESTIMATE NORMAL
[2022-10-11] MEDS: PANTOPRAZOLE 80 MG in SODIUM CHLORIDE 0.9% 100 ML IV SCH ×2 (11:43→21:15)
[2022-10-11] MEDS: OCTREOTIDE 1,000 MCG in SODIUM CHLORIDE 0.9% 98 ML IV SCH (11:43)
[2022-10-11] MEDS: MIDODRINE HCL 5MG TABLET PO SCH ×2 (13:00→17:00)
[2022-10-11] MEDS ORDERED: ENOXAPARIN 80MG/0.8ML SYR SUBCUT SCH (15:00)
[2022-10-11] MEDS: DILTIAZEM HCL 60MG TABLET PO SCH (17:06)
[2022-10-11] MEDS: METRONIDAZOLE 500 MG PREMIX 100 ML IV SCH (21:15)
[2022-10-11] MEDS ORDERED: DEXTROSE 50% WATER 50ML SYRINGE IV PRN (22:15)
[2022-10-12] VITALS (85 sets, daily range): BP systolic 80–138; BP diastolic 44–83
[2022-10-12] MEDS: MAGNESIUM/ALUMINUM HYDROXIDE/SIMETHICONE 30ML UDC PO SCH ×4 (00:46→17:30)
[2022-10-12] MEDS: PHENYLEPHRINE 100 MG in DEXT 5% WATER 240 ML IV PRN (02:01)
[2022-10-12] MEDS: MORPHINE SULFATE 4 MG/ML CPJ (NOT FOR IM USE) IV PRN ×2 (04:02→10:11)
[2022-10-12] MEDS: OCTREOTIDE 1,000 MCG in SODIUM CHLORIDE 0.9% 98 ML IV SCH (05:18)
[2022-10-12] MEDS: LACTULOSE 20G/30ML UDC PO SCH ×3 (05:19→21:56)
[2022-10-12] MEDS: DILTIAZEM HCL 60MG TABLET PO SCH ×4 (06:00→17:30)
[2022-10-12] MEDS: SODIUM CHLORIDE 0.9% 1,000 ML IV SCH ×2 (06:15→17:38)
[2022-10-12 06:39] LABS: HEMOGLOBIN. 8.4 g/dL (14.0-18.0); MEAN CORPUSCULAR HEMOGLOBIN 29.4 pg (28.0-32.0); MEAN CORPUSCULAR VOLUME 91.5 fL (80.0-94.0); MEAN PLATELET VOLUME 9.2 fl (7.4-10.4); PLATELET 137 x1000/uL (130-400); RED BLOOD CELL COUNT 2.84 mill/uL (4.7-6.1); RED CELL DISTRIBUTION WIDTH 24.1 % (11.6-14.6)
[2022-10-12] MEDS: BLOOD SUGAR DIAGNOSTIC STRIP TEST SCH ×4 (07:55→20:55)
[2022-10-12 08:12] LABS: PLATELET ESTIMATE NORMAL
[2022-10-12] MEDS: CEFEPIME 2,000 MG in DEXT 5% WATER 100 ML IV SCH (08:16)
[2022-10-12] MEDS: INSULIN LISPRO 100 UNITS/ML SUBCUT SCH ×4 (08:20→20:57)
[2022-10-12] MEDS: LEVOTHYROXINE SODIUM 25MCG TABLET PO SCH (08:20)
[2022-10-12] MEDS: MIDODRINE HCL 5MG TABLET PO SCH ×3 (08:20→16:18)
[2022-10-12] MEDS: METRONIDAZOLE 500 MG PREMIX 100 ML IV SCH ×2 (08:20→21:05)
[2022-10-12] MEDS: LIDOCAINE 5% PATCH TOP SCH (08:26)
[2022-10-12] MEDS: PANTOPRAZOLE 80 MG in SODIUM CHLORIDE 0.9% 100 ML IV SCH ×2 (11:26→17:44)
[2022-10-12] MEDS: IPRATROPIUM BROMIDE (0.02%) 0.5MG/2.5ML NEB HHN SCH (20:30)
[2022-10-13] VITALS (95 sets, daily range): BP systolic 76–153; BP diastolic 37–110
[2022-10-13] MEDS: MAGNESIUM/ALUMINUM HYDROXIDE/SIMETHICONE 30ML UDC PO SCH ×4 (01:15→18:28)
[2022-10-13] MEDS: IPRATROPIUM BROMIDE (0.02%) 0.5MG/2.5ML NEB HHN SCH ×4 (01:41→20:16)
[2022-10-13] MEDS: SODIUM CHLORIDE 0.9% 1,000 ML IV SCH (03:07)
[2022-10-13] MEDS: PANTOPRAZOLE 80 MG in SODIUM CHLORIDE 0.9% 100 ML IV SCH ×2 (03:07→14:12)
[2022-10-13 05:16] LABS: BASOPHILS % 0.4 % (0.0-2.0); EOSINOPHILS % 0.1 % (0.0-5.0); HEMATOCRIT. 29.8 % (42.0-52.0); HEMOGLOBIN. 9.1 g/dL (14.0-18.0); LYMPHOCYTES % 12.7 % (20.0-50.0); MEAN CORPUSCULAR HEMOGLOBIN 29.6 pg (28.0-32.0); MEAN CORPUSCULAR VOLUME 97.2 fL (80.0-94.0); MEAN PLATELET VOLUME 8.9 fl (7.4-10.4); NEUTROPHILS % 82.8 % (40.0-76.0); PLATELET 134 x1000/uL (130-400); RED BLOOD CELL COUNT 3.06 mill/uL (4.7-6.1); RED CELL DISTRIBUTION WIDTH 24.2 % (11.6-14.6)
[2022-10-13] MEDS: DILTIAZEM HCL 60MG TABLET PO SCH ×4 (05:29→17:41)
[2022-10-13] MEDS: LACTULOSE 20G/30ML UDC PO SCH ×3 (05:30→21:55)
[2022-10-13] MEDS: DILTIAZEM HCL 5MG/ML 5ML VIAL IV PRN (06:26)
[2022-10-13] MEDS ORDERED: FUROSEMIDE 40MG/4ML VIAL IVP NR ×2 (06:30→22:45)
[2022-10-13] MEDS ORDERED: AMIODARONE HCL 900 MG in DEXT 5% WATER 482 ML IV PRN (06:30)
[2022-10-13] MEDS ORDERED: FUROSEMIDE 40MG/4ML VIAL IVP SCH ×2 (07:00→18:30)
[2022-10-13] MEDS ORDERED: METOPROLOL TARTRATE 5MG/5ML VIAL IV NR (07:00)
[2022-10-13] MEDS: FUROSEMIDE 40MG/4ML VIAL IVP SCH (07:13)
[2022-10-13] MEDS ORDERED: AMIODARONE HCL 150 MG in DEXT 5% WATER 100 ML IV NR (07:15)
[2022-10-13 07:40] LABS: BG CARBOXYHEMOGLOBIN 0.4 % (0.5-1.5); BG DEOXYHEMOGLOBIN 9.1 % (0.0-5.0); BG FRACTION INSPIRED OXYGEN 44; BG HCO3 ACT 10.7 mmol/L (22.0-26.0); BG METHEMOGLOBIN 0.3 % (0.0-1.5); BG OXYGEN SATURATION 90.8 % (92.0-98.5); BG OXYHEMOGLOBIN 90.2 % (94.0-97.0); BG PCO2 28.1 mmHg (35.0-45.0); BG PH 7.197 (7.350-7.450); BG PO2 63.7 mmHg (75.0-100.0); BG SAMPLE SITE RIGHT BRACHIAL; BG VENT MODE NASAL CANNULA
[2022-10-13] MEDS ORDERED: SODIUM BICARBONATE 8.4% 1 MEQ/ML 50ML SYR IV NR ×2 (08:00→09:30)
[2022-10-13] MEDS: INSULIN LISPRO 100 UNITS/ML SUBCUT SCH ×4 (08:20→21:00)
[2022-10-13] MEDS: BLOOD SUGAR DIAGNOSTIC STRIP TEST SCH ×4 (08:25→21:00)
[2022-10-13] MEDS: MIDODRINE HCL 5MG TABLET PO SCH ×3 (09:00→17:00)
[2022-10-13] MEDS: LEVOTHYROXINE SODIUM 25MCG TABLET PO SCH (09:00)
[2022-10-13 09:07] LABS: BG BASE EXCESS -10.2 mmol/L (-2.0-2.0); BG CARBOXYHEMOGLOBIN 0.5 % (0.5-1.5); BG FRACTION INSPIRED OXYGEN 35; BG OXYHEMOGLOBIN 93.5 % (94.0-97.0); BG PCO2 30.7 mmHg (35.0-45.0); BG PH 7.307 (7.350-7.450); BG PO2 69.7 mmHg (75.0-100.0); BG SAMPLE SITE RIGHT RADIAL; BG TOTAL HEMOGLOBIN 9.6 g/dL (12.0-18.0); BG VENT MODE MASK - BIPAP
[2022-10-13] MEDS: METRONIDAZOLE 500 MG PREMIX 100 ML IV SCH ×2 (09:32→21:55)
[2022-10-13] MEDS: CEFEPIME 1,000 MG in DEXTROSE 5% WATER 50 ML IV SCH (09:32)
[2022-10-13] MEDS: LIDOCAINE 5% PATCH TOP SCH (09:34)
[2022-10-13] MEDS: PHENYLEPHRINE 100 MG in DEXT 5% WATER 240 ML IV PRN (09:57)
[2022-10-13 10:22] LABS: CHLORIDE 114 mEq/L (98-107)
[2022-10-13] MEDS ORDERED: NA PHOS,M-B/NA PHOS,DI-BA ENEMA 118ML PR NR (11:00)
[2022-10-13] MEDS ORDERED: VANCOMYCIN 500MG PREMIX 100 ML IV NR (18:00)
[2022-10-13] MEDS ORDERED: NA PHOS,M-B/NA PHOS,DI-BA ENEMA 118ML PR SCH (20:00)
[2022-10-14] VITALS (99 sets, daily range): BP systolic 67–144; BP diastolic 35–89
[2022-10-14] MEDS: MORPHINE SULFATE 4 MG/ML CPJ (NOT FOR IM USE) IV PRN ×2 (00:20→04:26)
[2022-10-14] MEDS: PANTOPRAZOLE 80 MG in SODIUM CHLORIDE 0.9% 100 ML IV SCH ×3 (00:26→20:10)
[2022-10-14] MEDS: IPRATROPIUM BROMIDE (0.02%) 0.5MG/2.5ML NEB HHN SCH ×5 (02:31→19:58)
[2022-10-14] MEDS: MAGNESIUM/ALUMINUM HYDROXIDE/SIMETHICONE 30ML UDC PO SCH ×4 (02:35→20:10)
[2022-10-14 05:59] LABS: HEMATOCRIT. 27.3 % (42.0-52.0); MEAN CORPUSCULAR HEMOGLOBIN 30.2 pg (28.0-32.0); MEAN CORPUSCULAR VOLUME 91.1 fL (80.0-94.0); MEAN PLATELET VOLUME 9.4 fl (7.4-10.4); PLATELET 116 x1000/uL (130-400); RED BLOOD CELL COUNT 2.99 mill/uL (4.7-6.1); RED CELL DISTRIBUTION WIDTH 24.9 % (11.6-14.6)
[2022-10-14] MEDS: BLOOD SUGAR DIAGNOSTIC STRIP TEST SCH ×3 (06:00→18:38)
[2022-10-14] MEDS: INSULIN LISPRO 100 UNITS/ML SUBCUT SCH ×3 (06:00→18:00)
[2022-10-14] MEDS: DILTIAZEM HCL 60MG TABLET PO SCH ×4 (06:00→17:54)
[2022-10-14] MEDS: LACTULOSE 20G/30ML UDC PO SCH ×2 (06:13→14:29)
[2022-10-14 07:01] LABS: PLATELET ESTIMATE DECREASED
[2022-10-14 08:35] LABS: BG BASE EXCESS -7.1 mmol/L (-2.0-2.0); BG CARBOXYHEMOGLOBIN 0.3 % (0.5-1.5); BG FRACTION INSPIRED OXYGEN 60; BG HCO3 ACT 18.5 mmol/L (22.0-26.0); BG METHEMOGLOBIN 0.3 % (0.0-1.5); BG OXYHEMOGLOBIN 94.4 % (94.0-97.0); BG PCO2 37.6 mmHg (35.0-45.0); BG PH 7.311 (7.350-7.450); BG PO2 79.6 mmHg (75.0-100.0); BG SAMPLE SITE RIGHT RADIAL; BG TOTAL HEMOGLOBIN 9.1 g/dL (12.0-18.0); BG VENT MODE MASK - BIPAP
[2022-10-14] MEDS: CEFEPIME 1,000 MG in DEXTROSE 5% WATER 50 ML IV SCH (08:42)
[2022-10-14] MEDS: METRONIDAZOLE 500 MG PREMIX 100 ML IV SCH ×2 (08:42→20:11)
[2022-10-14] MEDS: FUROSEMIDE 40MG/4ML VIAL IVP SCH (08:43)
[2022-10-14] MEDS: LEVOTHYROXINE SODIUM 25MCG TABLET PO SCH (08:43)
[2022-10-14] MEDS: MIDODRINE HCL 5MG TABLET PO SCH ×3 (08:43→17:54)
[2022-10-14] MEDS: LIDOCAINE 5% PATCH TOP SCH (08:43)
[2022-10-14] MEDS: LACTOBACILLUS GG CAPSULE PO SCH (09:32)
[2022-10-14] MEDS: PHENYLEPHRINE 100 MG in DEXT 5% WATER 240 ML IV PRN (10:39)
[2022-10-14] MEDS ORDERED: SODIUM BICARBONATE 8.4% 1 MEQ/ML 50ML SYR IV NR (11:00)
[2022-10-14] MEDS: IPRATROPIUM BROMIDE (0.02%) 0.5MG/2.5ML NEB HHN PRN ×2 (12:58→16:22)
[2022-10-14] MEDS: DILTIAZEM HCL 5MG/ML 5ML VIAL IV PRN ×2 (13:03)
[2022-10-14] MEDS: AMIODARONE HCL 200 MG TABLET PO SCH (20:12)
[2022-10-15] VITALS (91 sets, daily range): BP systolic 68–147; BP diastolic 30–76
[2022-10-15] MEDS: LACTULOSE 20G/30ML UDC PO SCH ×4 (00:39→21:38)
[2022-10-15] MEDS: MAGNESIUM/ALUMINUM HYDROXIDE/SIMETHICONE 30ML UDC PO SCH ×4 (00:39→18:11)
[2022-10-15] MEDS: IPRATROPIUM BROMIDE (0.02%) 0.5MG/2.5ML NEB HHN SCH ×4 (01:45→19:46)
[2022-10-15] MEDS: PHENYLEPHRINE 100 MG in DEXT 5% WATER 240 ML IV PRN ×3 (02:24→21:38)
[2022-10-15] MEDS: MORPHINE SULFATE 4 MG/ML CPJ (NOT FOR IM USE) IV PRN (03:18)
[2022-10-15] MEDS: VASOPRESSIN 20 UNIT in SODIUM CHLORIDE 0.9% 99 ML IV PRN (04:58)
[2022-10-15] MEDS: PANTOPRAZOLE 80 MG in SODIUM CHLORIDE 0.9% 100 ML IV SCH ×2 (05:12→16:25)
[2022-10-15] MEDS: DILTIAZEM HCL 60MG TABLET PO SCH ×4 (05:13→18:12)
[2022-10-15 05:35] LABS: HEMATOCRIT. 29.4 % (42.0-52.0); HEMOGLOBIN. 9.5 g/dL (14.0-18.0); MEAN CORPUSCULAR HEMOGLOBIN 29.4 pg (28.0-32.0); MEAN CORPUSCULAR VOLUME 91.1 fL (80.0-94.0); MEAN PLATELET VOLUME 9.6 fl (7.4-10.4); PLATELET 112 x1000/uL (130-400); RED BLOOD CELL COUNT 3.22 mill/uL (4.7-6.1); RED CELL DISTRIBUTION WIDTH 24.7 % (11.6-14.6)
[2022-10-15] MEDS: INSULIN LISPRO 100 UNITS/ML SUBCUT SCH ×4 (05:58→17:59)
[2022-10-15] MEDS: BLOOD SUGAR DIAGNOSTIC STRIP TEST SCH ×4 (05:58→17:59)
[2022-10-15] MEDS ORDERED: KETAMINE HCL 50 MG/ML 10ML IV NR (06:00)
[2022-10-15] MEDS ORDERED: SODIUM BICARBONATE 8.4% 1 MEQ/ML 50ML SYR IV NR ×3 (06:30→14:45)
[2022-10-15 06:42] LABS: PLATELET ESTIMATE DECREASED
[2022-10-15] MEDS ORDERED: MIDAZOLAM 100MG/100ML PMX 100 ML IV PRN (06:45)
[2022-10-15] MEDS ORDERED: ALBUMIN HUMAN 25GM/100ML (25%) IV NR (06:45)
[2022-10-15] MEDS ORDERED: ALBUMIN HUMAN 12.5GM/50ML (25%) IV NR (07:00)
[2022-10-15] MEDS: FENTANYL 2500MCG/250ML PMX 250 ML IV PRN (08:01)
[2022-10-15] MEDS ORDERED: SUCCINYLCHOLINE CHLORIDE 200MG/10ML IV ONE (08:08)
[2022-10-15] MEDS: AMIODARONE HCL 200 MG TABLET PO SCH ×2 (08:10→21:38)
[2022-10-15] MEDS: LACTOBACILLUS GG CAPSULE PO SCH (08:10)
[2022-10-15] MEDS: MIDODRINE HCL 5MG TABLET PO SCH ×3 (08:10→18:12)
[2022-10-15] MEDS: LEVOTHYROXINE SODIUM 25MCG TABLET PO SCH (08:11)
[2022-10-15] MEDS: MIDAZOLAM HCL 100 MG in SODIUM CHLORIDE 0.9% 100 ML IV PRN (08:28)
[2022-10-15 08:54] LABS: BG BASE EXCESS -11.2 mmol/L (-2.0-2.0); BG CARBOXYHEMOGLOBIN 0.8 % (0.5-1.5); BG DEOXYHEMOGLOBIN 9.9 % (0.0-5.0); BG FRACTION INSPIRED OXYGEN 100; BG HCO3 ACT 16.5 mmol/L (22.0-26.0); BG METHEMOGLOBIN 0.3 % (0.0-1.5); BG PCO2 45.2 mmHg (35.0-45.0); BG PO2 65.8 mmHg (75.0-100.0); BG SAMPLE SITE ALINE; BG VENT MODE VENT - AC
[2022-10-15] MEDS: LIDOCAINE 5% PATCH TOP SCH (09:00)
[2022-10-15] MEDS: FUROSEMIDE 40MG/4ML VIAL IVP SCH (09:32)
[2022-10-15] MEDS: METRONIDAZOLE 500 MG PREMIX 100 ML IV SCH ×2 (09:32→21:38)
[2022-10-15] MEDS: CEFEPIME 1,000 MG in DEXTROSE 5% WATER 50 ML IV SCH (09:32)
[2022-10-15] MEDS: NOREPINEPHRINE 32 MG in DEXTROSE 5% WATER 250 ML IV PRN (09:33)
[2022-10-15] MEDS ORDERED: METHYLPREDNISOLONE SOD SUCC 125 MG/2 ML VIAL IV NR (10:15)
[2022-10-15] MEDS ORDERED: SODIUM BICARBONATE 8.4% 1 MEQ/ML 50ML SYR IV ONE (10:15)
[2022-10-15] MEDS: METOCLOPRAMIDE HCL 10MG/2ML VIAL IV SCH ×2 (12:00→18:12)
[2022-10-15 12:19] LABS: BG BASE EXCESS -8.4 mmol/L (-2.0-2.0); BG CARBOXYHEMOGLOBIN 0.5 % (0.5-1.5); BG DEOXYHEMOGLOBIN 3.7 % (0.0-5.0); BG HCO3 ACT 17.2 mmol/L (22.0-26.0); BG METHEMOGLOBIN 0.1 % (0.0-1.5); BG OXYGEN SATURATION 96.3 % (92.0-98.5); BG OXYHEMOGLOBIN 95.7 % (94.0-97.0); BG PCO2 35.2 mmHg (35.0-45.0); BG PH 7.306 (7.350-7.450); BG PO2 91.2 mmHg (75.0-100.0); BG SAMPLE SITE ALINE; BG TOTAL HEMOGLOBIN 8.3 g/dL (12.0-18.0); BG VENT MODE VENT - AC
[2022-10-15] MEDS: ACETYLCYSTEINE 200MG/ML 20% VIAL 4ML INH SCH (14:16)
[2022-10-16] VITALS (92 sets, daily range): BP systolic 81–138; BP diastolic 32–76
[2022-10-16] MEDS: METOCLOPRAMIDE HCL 10MG/2ML VIAL IV SCH ×4 (00:36→17:13)
[2022-10-16] MEDS: DILTIAZEM HCL 60MG TABLET PO SCH ×4 (00:36→17:13)
[2022-10-16] MEDS: MAGNESIUM/ALUMINUM HYDROXIDE/SIMETHICONE 30ML UDC PO SCH ×4 (00:36→18:18)
[2022-10-16] MEDS: INSULIN LISPRO 100 UNITS/ML SUBCUT SCH ×4 (00:37→17:10)
[2022-10-16] MEDS: IPRATROPIUM BROMIDE (0.02%) 0.5MG/2.5ML NEB HHN SCH ×4 (01:15→20:38)
[2022-10-16] MEDS: ACETYLCYSTEINE 200MG/ML 20% VIAL 4ML INH SCH ×3 (01:15→14:02)
[2022-10-16] MEDS: PANTOPRAZOLE 80 MG in SODIUM CHLORIDE 0.9% 100 ML IV SCH ×3 (02:52→21:21)
[2022-10-16] MEDS: LACTULOSE 20G/30ML UDC PO SCH ×3 (05:43→21:21)
[2022-10-16] MEDS: BLOOD SUGAR DIAGNOSTIC STRIP TEST SCH ×4 (06:00→17:10)
[2022-10-16 06:03] LABS: HEMOGLOBIN. 7.8 g/dL (14.0-18.0); MEAN CORPUSCULAR VOLUME 89.3 fL (80.0-94.0); MEAN PLATELET VOLUME 10.4 fl (7.4-10.4); PLATELET 83 x1000/uL (130-400); RED BLOOD CELL COUNT 2.69 mill/uL (4.7-6.1); RED CELL DISTRIBUTION WIDTH 24.4 % (11.6-14.6)
[2022-10-16 07:27] LABS: BG BASE EXCESS -3.5 mmol/L (-2.0-2.0); BG CARBOXYHEMOGLOBIN 0.5 % (0.5-1.5); BG METHEMOGLOBIN 0.3 % (0.0-1.5); BG OXYGEN SATURATION 92.9 % (92.0-98.5); BG OXYHEMOGLOBIN 92.2 % (94.0-97.0); BG PCO2 35.8 mmHg (35.0-45.0); BG PH 7.387 (7.350-7.450); BG PO2 68.1 mmHg (75.0-100.0); BG SAMPLE SITE ALINE; BG TOTAL HEMOGLOBIN 8.9 g/dL (12.0-18.0); BG VENT MODE VENT - AC
[2022-10-16 08:07] LABS: NUCLEATED RED BLOOD CELLS 1 /100 WBC; PLATELET ESTIMATE DECREASED
[2022-10-16] MEDS: LEVOTHYROXINE SODIUM 25MCG TABLET PO SCH (08:42)
[2022-10-16] MEDS: FUROSEMIDE 40MG/4ML VIAL IVP SCH (08:42)
[2022-10-16] MEDS: AMIODARONE HCL 200 MG TABLET PO SCH ×2 (08:42→21:22)
[2022-10-16] MEDS: LIDOCAINE 5% PATCH TOP SCH (08:43)
[2022-10-16] MEDS: LACTOBACILLUS GG CAPSULE PO SCH (08:43)
[2022-10-16] MEDS: MIDODRINE HCL 5MG TABLET PO SCH ×3 (08:43→17:13)
[2022-10-16] MEDS: CEFEPIME 1,000 MG in DEXTROSE 5% WATER 50 ML IV SCH (08:43)
[2022-10-16] MEDS: METRONIDAZOLE 500 MG PREMIX 100 ML IV SCH ×2 (09:48→21:21)
[2022-10-16] MEDS: SODIUM CHLORIDE 3% FOR INH 4ML UD NEB INH SCH (09:56)
[2022-10-16] MEDS: DILTIAZEM HCL 5MG/ML 5ML VIAL IV PRN (10:22)
[2022-10-16] MEDS: PHENYLEPHRINE 100 MG in DEXT 5% WATER 240 ML IV PRN (12:35)
[2022-10-17] VITALS (93 sets, daily range): BP systolic 97–221; BP diastolic 43–169
[2022-10-17] MEDS: BLOOD SUGAR DIAGNOSTIC STRIP TEST SCH ×4 (00:37→17:39)
[2022-10-17] MEDS: MAGNESIUM/ALUMINUM HYDROXIDE/SIMETHICONE 30ML UDC PO SCH ×4 (00:47→17:44)
[2022-10-17] MEDS: METOCLOPRAMIDE HCL 10MG/2ML VIAL IV SCH ×4 (00:49→17:45)
[2022-10-17] MEDS: ACETYLCYSTEINE 200MG/ML 20% VIAL 4ML INH SCH ×3 (02:30→17:05)
[2022-10-17] MEDS: IPRATROPIUM BROMIDE (0.02%) 0.5MG/2.5ML NEB HHN SCH ×3 (02:30→13:59)
[2022-10-17] MEDS: PHENYLEPHRINE 100 MG in DEXT 5% WATER 240 ML IV PRN (04:15)
[2022-10-17] MEDS: INSULIN LISPRO 100 UNITS/ML SUBCUT SCH ×4 (05:17→17:39)
[2022-10-17] MEDS: DILTIAZEM HCL 60MG TABLET PO SCH ×5 (05:18→23:58)
[2022-10-17] MEDS: LACTULOSE 20G/30ML UDC PO SCH ×3 (05:19→22:05)
[2022-10-17 05:37] LABS: BASOPHILS % 0.1 % (0.0-2.0); EOSINOPHILS % 0.1 % (0.0-5.0); HEMATOCRIT. 23.3 % (42.0-52.0); HEMOGLOBIN. 7.7 g/dL (14.0-18.0); LYMPHOCYTES % 36.3 % (20.0-50.0); MEAN CORPUSCULAR HEMOGLOBIN 29.1 pg (28.0-32.0); MONOCYTES % 2.5 % (2.0-8.0); RED BLOOD CELL COUNT 2.65 mill/uL (4.7-6.1); RED CELL DISTRIBUTION WIDTH 23.7 % (11.6-14.6)
[2022-10-17] MEDS: FENTANYL 2500MCG/250ML PMX 250 ML IV PRN (07:25)
[2022-10-17 07:52] LABS: PLATELET ESTIMATE DECREASED
[2022-10-17 07:54] LABS: MEAN PLATELET VOLUME 10.4 fl (7.4-10.4); PLATELET 61 x1000/uL (130-400)
[2022-10-17] MEDS: LIDOCAINE 5% PATCH TOP SCH (08:24)
[2022-10-17] MEDS: FUROSEMIDE 40MG/4ML VIAL IVP SCH (09:19)
[2022-10-17] MEDS: CEFEPIME 1,000 MG in DEXTROSE 5% WATER 50 ML IV SCH (09:19)
[2022-10-17] MEDS: LACTOBACILLUS GG CAPSULE PO SCH (09:20)
[2022-10-17] MEDS: LEVOTHYROXINE SODIUM 25MCG TABLET PO SCH (09:20)
[2022-10-17] MEDS: AMIODARONE HCL 200 MG TABLET PO SCH ×2 (09:20→20:59)
[2022-10-17] MEDS: METRONIDAZOLE 500 MG PREMIX 100 ML IV SCH ×2 (09:20→20:58)
[2022-10-17] MEDS: MIDODRINE HCL 5MG TABLET PO SCH ×3 (09:21→17:44)
[2022-10-17] MEDS: PANTOPRAZOLE 80 MG in SODIUM CHLORIDE 0.9% 100 ML IV SCH ×2 (10:45→17:45)
[2022-10-17 11:15] LABS: BG BASE EXCESS 1.9 mmol/L (-2.0-2.0); BG CARBOXYHEMOGLOBIN 0.3 % (0.5-1.5); BG DEOXYHEMOGLOBIN 0.9 % (0.0-5.0); BG FRACTION INSPIRED OXYGEN 100; BG HCO3 ACT 25.9 mmol/L (22.0-26.0); BG METHEMOGLOBIN 0.2 % (0.0-1.5); BG OXYGEN SATURATION 99.1 % (92.0-98.5); BG OXYHEMOGLOBIN 98.6 % (94.0-97.0); BG PH 7.452 (7.350-7.450); BG PO2 169.5 mmHg (75.0-100.0); BG SAMPLE SITE CL; BG TOTAL HEMOGLOBIN 8.2 g/dL (12.0-18.0); BG VENT MODE VENT - AC
[2022-10-17] MEDS ORDERED: KCL 20MEQ/100ML PREMIX 100 ML IV NR (11:45)
[2022-10-17] MEDS: SODIUM CHLORIDE 3% FOR INH 4ML UD NEB INH SCH (13:00)
[2022-10-18] VITALS (96 sets, daily range): BP systolic 67–172; BP diastolic 28–172
[2022-10-18] MEDS: BLOOD SUGAR DIAGNOSTIC STRIP TEST SCH ×4 (00:05→17:54)
[2022-10-18] MEDS: METOCLOPRAMIDE HCL 10MG/2ML VIAL IV SCH ×4 (00:14→18:53)
[2022-10-18] MEDS: DILTIAZEM HCL 60MG TABLET PO SCH ×4 (01:06→18:53)
[2022-10-18] MEDS: ACETYLCYSTEINE 200MG/ML 20% VIAL 4ML INH SCH ×2 (01:39→02:25)
[2022-10-18] MEDS: PHENYLEPHRINE 100 MG in DEXT 5% WATER 240 ML IV PRN ×3 (01:51→16:32)
[2022-10-18] MEDS: MAGNESIUM/ALUMINUM HYDROXIDE/SIMETHICONE 30ML UDC PO SCH ×4 (02:16→18:52)
[2022-10-18] MEDS: PANTOPRAZOLE 80 MG in SODIUM CHLORIDE 0.9% 100 ML IV SCH ×2 (03:26→16:31)
[2022-10-18] MEDS: MIDAZOLAM HCL 100 MG in SODIUM CHLORIDE 0.9% 100 ML IV PRN (03:27)
[2022-10-18] MEDS: DILTIAZEM HCL 5MG/ML 5ML VIAL IV PRN (03:40)
[2022-10-18 05:50] LABS: HEMATOCRIT. 25.7 % (42.0-52.0); HEMOGLOBIN. 8.5 g/dL (14.0-18.0); MEAN CORPUSCULAR HEMOGLOBIN 29.7 pg (28.0-32.0); MEAN CORPUSCULAR VOLUME 89.8 fL (80.0-94.0); RED BLOOD CELL COUNT 2.86 mill/uL (4.7-6.1); RED CELL DISTRIBUTION WIDTH 24.2 % (11.6-14.6)
[2022-10-18] MEDS: INSULIN LISPRO 100 UNITS/ML SUBCUT SCH ×4 (06:00→17:54)
[2022-10-18] MEDS: LACTULOSE 20G/30ML UDC PO SCH ×3 (06:20→21:40)
[2022-10-18 07:45] LABS: NUCLEATED RED BLOOD CELLS 15 /100 WBC
[2022-10-18 07:47] LABS: MEAN PLATELET VOLUME 11.5 fl (7.4-10.4); PLATELET 55 x1000/uL (130-400); PLATELET ESTIMATE DECREASED
[2022-10-18] MEDS: LIDOCAINE 5% PATCH TOP SCH (09:00)
[2022-10-18 09:15] LABS: BG BASE EXCESS -4.3 mmol/L (-2.0-2.0); BG CARBOXYHEMOGLOBIN 0.3 % (0.5-1.5); BG DEOXYHEMOGLOBIN 8.5 % (0.0-5.0); BG FRACTION INSPIRED OXYGEN 100; BG HCO3 ACT 21.2 mmol/L (22.0-26.0); BG METHEMOGLOBIN 0.3 % (0.0-1.5); BG OXYGEN SATURATION 91.4 % (92.0-98.5); BG OXYHEMOGLOBIN 90.9 % (94.0-97.0); BG PCO2 40.6 mmHg (35.0-45.0); BG PH 7.335 (7.350-7.450); BG PO2 65.8 mmHg (75.0-100.0); BG SAMPLE SITE ALINE; BG TOTAL HEMOGLOBIN 9.5 g/dL (12.0-18.0); BG VENT MODE VENT - AC
[2022-10-18] MEDS: CEFEPIME 1,000 MG in DEXTROSE 5% WATER 50 ML IV SCH (10:06)
[2022-10-18] MEDS: MIDODRINE HCL 5MG TABLET PO SCH ×3 (10:06→18:53)
[2022-10-18] MEDS: AMIODARONE HCL 200 MG TABLET PO SCH ×2 (10:06→21:40)
[2022-10-18] MEDS: LACTOBACILLUS GG CAPSULE PO SCH (10:06)
[2022-10-18] MEDS: METRONIDAZOLE 500 MG PREMIX 100 ML IV SCH ×2 (10:06→21:40)
[2022-10-18] MEDS: FUROSEMIDE 40MG/4ML VIAL IVP SCH (10:06)
[2022-10-18] MEDS: LEVOTHYROXINE SODIUM 25MCG TABLET PO SCH (10:06)
[2022-10-18] MEDS: VASOPRESSIN 20 UNIT in SODIUM CHLORIDE 0.9% 99 ML IV PRN ×2 (10:49→20:19)
[2022-10-18] MEDS ORDERED: IPRATROPIUM/ALBUTEROL 0.5-3(2.5)MG/3ML NEB HHN PRN (15:00)
[2022-10-18] MEDS ORDERED: BISACODYL 10MG SUPP PR NR (15:00)
[2022-10-18] MEDS ORDERED: LACTULOSE 20G/30ML UDC PO NR (15:00)
[2022-10-18] MEDS: IPRATROPIUM/ALBUTEROL 0.5-3(2.5)MG/3ML NEB HHN SCH ×2 (16:01→21:19)
[2022-10-19] VITALS (92 sets, daily range): BP systolic 78–131; BP diastolic 35–77
[2022-10-19] MEDS: MAGNESIUM/ALUMINUM HYDROXIDE/SIMETHICONE 30ML UDC PO SCH ×4 (00:32→19:10)
[2022-10-19] MEDS: METOCLOPRAMIDE HCL 10MG/2ML VIAL IV SCH ×4 (00:32→19:10)
[2022-10-19] MEDS: PANTOPRAZOLE 80 MG in SODIUM CHLORIDE 0.9% 100 ML IV SCH ×3 (00:32→20:24)
[2022-10-19] MEDS: PHENYLEPHRINE 100 MG in DEXT 5% WATER 240 ML IV PRN ×3 (00:32→15:26)
[2022-10-19] MEDS: DILTIAZEM HCL 60MG TABLET PO SCH ×4 (00:33→18:00)
[2022-10-19] MEDS: BLOOD SUGAR DIAGNOSTIC STRIP TEST SCH ×4 (00:33→18:00)
[2022-10-19] MEDS: IPRATROPIUM/ALBUTEROL 0.5-3(2.5)MG/3ML NEB HHN SCH ×5 (01:40→20:28)
[2022-10-19 05:42] LABS: BASOPHILS % 0.6 % (0.0-2.0); EOSINOPHILS % 0.4 % (0.0-5.0); HEMATOCRIT. 24.2 % (42.0-52.0); HEMOGLOBIN. 7.9 g/dL (14.0-18.0); LYMPHOCYTES % 7.9 % (20.0-50.0); MEAN CORPUSCULAR HEMOGLOBIN 29.4 pg (28.0-32.0); MEAN CORPUSCULAR VOLUME 89.9 fL (80.0-94.0); MEAN PLATELET VOLUME 8.6 fl (7.4-10.4); MONOCYTES % 9.4 % (2.0-8.0); NEUTROPHILS % 81.7 % (40.0-76.0); RED BLOOD CELL COUNT 2.69 mill/uL (4.7-6.1); RED CELL DISTRIBUTION WIDTH 24.1 % (11.6-14.6)
[2022-10-19] MEDS: INSULIN LISPRO 100 UNITS/ML SUBCUT SCH ×4 (06:00→18:00)
[2022-10-19] MEDS: LACTULOSE 20G/30ML UDC PO SCH ×3 (06:20→23:03)
[2022-10-19] MEDS: AMIODARONE HCL 200 MG TABLET PO SCH (08:41)
[2022-10-19] MEDS: METRONIDAZOLE 500 MG PREMIX 100 ML IV SCH (08:41)
[2022-10-19] MEDS: CEFEPIME 1,000 MG in DEXTROSE 5% WATER 50 ML IV SCH (08:41)
[2022-10-19] MEDS: LACTOBACILLUS GG CAPSULE PO SCH (08:41)
[2022-10-19] MEDS: LEVOTHYROXINE SODIUM 25MCG TABLET PO SCH (08:41)
[2022-10-19] MEDS: LIDOCAINE 5% PATCH TOP SCH ×2 (08:42→09:00)
[2022-10-19] MEDS: FUROSEMIDE 40MG/4ML VIAL IVP SCH (08:42)
[2022-10-19] MEDS: MIDODRINE HCL 5MG TABLET PO SCH ×3 (08:44→19:10)
[2022-10-19] MEDS: SODIUM CHLORIDE 3% FOR INH 4ML UD NEB INH SCH (08:45)
[2022-10-19 09:34] LABS: INR 2.3; PROTHROMBIN TIME 23.9 sec (9.6-11.0)
[2022-10-19 10:29] LABS: BG BASE EXCESS -4.8 mmol/L (-2.0-2.0); BG CARBOXYHEMOGLOBIN 0.5 % (0.5-1.5); BG DEOXYHEMOGLOBIN 1.7 % (0.0-5.0); BG FRACTION INSPIRED OXYGEN 100; BG METHEMOGLOBIN 0.5 % (0.0-1.5); BG OXYGEN SATURATION 98.3 % (92.0-98.5); BG OXYHEMOGLOBIN 97.3 % (94.0-97.0); BG PCO2 41.6 mmHg (35.0-45.0); BG SAMPLE SITE ALINE; BG TOTAL HEMOGLOBIN 8.4 g/dL (12.0-18.0); BG VENT MODE VENT - AC
[2022-10-19 12:21] LABS: PLATELET 22 x1000/uL (130-400)
[2022-10-19] MEDS ORDERED: BISACODYL 10MG SUPP PR NR (13:00)
[2022-10-19] MEDS: METHYLPREDNISOLONE SOD SUCC 125 MG/2 ML VIAL IV SCH ×2 (15:25→23:03)
[2022-10-19] MEDS: DILTIAZEM HCL 5MG/ML 5ML VIAL IV PRN (20:38)
[2022-10-19] MEDS ORDERED: METRONIDAZOLE 500 MG PREMIX 100 ML IV SCH (21:00)
[2022-10-19] MEDS ORDERED: VANCOMYCIN 500MG PREMIX 100 ML IV SCH (21:00)
[2022-10-20] VITALS (102 sets, daily range): BP systolic 88–144; BP diastolic 39–86
[2022-10-20] MEDS: IPRATROPIUM/ALBUTEROL 0.5-3(2.5)MG/3ML NEB HHN SCH ×6 (00:06→20:04)
[2022-10-20] MEDS: BLOOD SUGAR DIAGNOSTIC STRIP TEST SCH ×4 (00:27→17:23)
[2022-10-20] MEDS: METOCLOPRAMIDE HCL 10MG/2ML VIAL IV SCH ×4 (00:28→17:43)
[2022-10-20] MEDS: MAGNESIUM/ALUMINUM HYDROXIDE/SIMETHICONE 30ML UDC PO SCH ×4 (00:28→17:43)
[2022-10-20] MEDS: DILTIAZEM HCL 60MG TABLET PO SCH ×4 (00:28→17:43)
[2022-10-20] MEDS: DILTIAZEM HCL 5MG/ML 5ML VIAL IV PRN ×2 (04:07→12:23)
[2022-10-20 05:34] LABS: HEMATOCRIT. 23.6 % (42.0-52.0); HEMOGLOBIN. 7.7 g/dL (14.0-18.0); MEAN CORPUSCULAR HEMOGLOBIN 29.5 pg (28.0-32.0); RED BLOOD CELL COUNT 2.62 mill/uL (4.7-6.1); RED CELL DISTRIBUTION WIDTH 24.4 % (11.6-14.6)
[2022-10-20 05:37] LABS: PLATELET 28 x1000/uL (130-400)
[2022-10-20] MEDS: INSULIN LISPRO 100 UNITS/ML SUBCUT SCH ×4 (06:00→17:23)
[2022-10-20] MEDS: PANTOPRAZOLE 80 MG in SODIUM CHLORIDE 0.9% 100 ML IV SCH ×2 (06:23→15:58)
[2022-10-20] MEDS: METHYLPREDNISOLONE SOD SUCC 125 MG/2 ML VIAL IV SCH ×3 (06:23→22:08)
[2022-10-20] MEDS: LACTULOSE 20G/30ML UDC PO SCH ×3 (06:23→22:08)
[2022-10-20] MEDS: PHENYLEPHRINE 100 MG in DEXT 5% WATER 240 ML IV PRN ×3 (06:23→22:08)
[2022-10-20] MEDS: FUROSEMIDE 40MG/4ML VIAL IVP SCH (08:31)
[2022-10-20] MEDS: LACTOBACILLUS GG CAPSULE PO SCH (08:31)
[2022-10-20] MEDS: LEVOTHYROXINE SODIUM 25MCG TABLET PO SCH (08:31)
[2022-10-20] MEDS: MEROPENEM 1,000 MG in SODIUM CHLORIDE 0.9% 100 ML IV SCH ×2 (08:32→21:20)
[2022-10-20] MEDS: LIDOCAINE 5% PATCH TOP SCH (08:32)
[2022-10-20] MEDS: MIDODRINE HCL 5MG TABLET PO SCH ×3 (08:33→17:43)
[2022-10-20] MEDS ORDERED: CEFEPIME 1,000 MG in DEXTROSE 5% WATER 50 ML IV SCH (09:00)
[2022-10-20 09:22] LABS: BG BASE EXCESS -5.9 mmol/L (-2.0-2.0); BG DEOXYHEMOGLOBIN 2.2 % (0.0-5.0); BG FRACTION INSPIRED OXYGEN 100; BG HCO3 ACT 19.2 mmol/L (22.0-26.0); BG METHEMOGLOBIN 0.5 % (0.0-1.5); BG OXYGEN SATURATION 97.8 % (92.0-98.5); BG OXYHEMOGLOBIN 97.3 % (94.0-97.0); BG PCO2 35.6 mmHg (35.0-45.0); BG PH 7.349 (7.350-7.450); BG PO2 110.7 mmHg (75.0-100.0); BG SAMPLE SITE ALINE; BG TOTAL HEMOGLOBIN 8.5 g/dL (12.0-18.0); BG VENT MODE VENT - AC
[2022-10-20 09:31] LABS: CLARITY URINE TURBID (CLEAR); COLOR URINE BLOODY (YELLOW)
[2022-10-20 09:32] LABS: KETONES URINE NEGATIVE (NEGATIVE); NITRITE URINE NEGATIVE (NEGATIVE); OCCULT BLOOD URINE 3+ (NEGATIVE); PH URINE 5.5 (4.5-8.0); PROTEIN URINE 2+ (NEGATIVE); SPECIFIC GRAVITY URINE 1.006 (1.005-1.030)
[2022-10-20 09:33] LABS: LEUKOCYTE ESTERASE URINE 2+ (NEGATIVE); UROBILINOGEN URINE 0.2 E.U./dL (0.2-1.0)
[2022-10-20] MEDS ORDERED: MORPHINE SULFATE 2 MG/ML CPJ (NOT FOR IM USE) IV PRN (10:15)
[2022-10-20] MEDS ORDERED: SODIUM CHLORIDE 0.45% 1,000 ML IV ONE (10:15)
[2022-10-20 10:26] LABS: NUCLEATED RED BLOOD CELLS 13 /100 WBC; PLATELET ESTIMATE MARKEDLY DECREASED
[2022-10-20] MEDS ORDERED: NALOXONE HCL 0.4MG/ML VIAL IV PRN (10:30)
[2022-10-21] VITALS (103 sets, daily range): BP systolic 81–124; BP diastolic 42–88
[2022-10-21] MEDS: DILTIAZEM HCL 60MG TABLET PO SCH ×4 (00:11→18:00)
[2022-10-21] MEDS: BLOOD SUGAR DIAGNOSTIC STRIP TEST SCH ×4 (00:11→18:06)
[2022-10-21] MEDS: MAGNESIUM/ALUMINUM HYDROXIDE/SIMETHICONE 30ML UDC PO SCH ×2 (00:12→06:29)
[2022-10-21] MEDS: METOCLOPRAMIDE HCL 10MG/2ML VIAL IV SCH ×4 (00:12→18:11)
[2022-10-21] MEDS: PANTOPRAZOLE 80 MG in SODIUM CHLORIDE 0.9% 100 ML IV SCH ×4 (00:49→22:44)
[2022-10-21] MEDS ORDERED: DILTIAZEM HCL 5MG/ML 25ML VIAL IV PRN (02:00)
[2022-10-21] MEDS: IPRATROPIUM/ALBUTEROL 0.5-3(2.5)MG/3ML NEB HHN SCH ×6 (04:03→20:24)
[2022-10-21] MEDS: INSULIN LISPRO 100 UNITS/ML SUBCUT SCH ×4 (06:00→18:00)
[2022-10-21 06:11] LABS: INR 2.4
[2022-10-21 06:19] LABS: HEMATOCRIT. 22.5 % (42.0-52.0); HEMOGLOBIN. 7.4 g/dL (14.0-18.0); MEAN CORPUSCULAR HEMOGLOBIN 29.4 pg (28.0-32.0); MEAN CORPUSCULAR VOLUME 89.6 fL (80.0-94.0); RED BLOOD CELL COUNT 2.51 mill/uL (4.7-6.1); RED CELL DISTRIBUTION WIDTH 24.1 % (11.6-14.6)
[2022-10-21] MEDS: METHYLPREDNISOLONE SOD SUCC 125 MG/2 ML VIAL IV SCH ×3 (06:29→21:40)
[2022-10-21] MEDS: LACTULOSE 20G/30ML UDC PO SCH ×3 (06:29→21:41)
[2022-10-21] MEDS: FUROSEMIDE 40MG/4ML VIAL IVP SCH (08:13)
[2022-10-21] MEDS: LIDOCAINE 5% PATCH TOP SCH (08:29)
[2022-10-21] MEDS: PHENYLEPHRINE 100 MG in DEXT 5% WATER 240 ML IV PRN ×2 (08:36→16:54)
[2022-10-21 08:44] LABS: BG BASE EXCESS -4.6 mmol/L (-2.0-2.0); BG CARBOXYHEMOGLOBIN 0.7 % (0.5-1.5); BG DEOXYHEMOGLOBIN 0.7 % (0.0-5.0); BG FRACTION INSPIRED OXYGEN 100; BG HCO3 ACT 20.5 mmol/L (22.0-26.0); BG METHEMOGLOBIN 0.3 % (0.0-1.5); BG OXYGEN SATURATION 99.3 % (92.0-98.5); BG OXYHEMOGLOBIN 98.3 % (94.0-97.0); BG PCO2 37.9 mmHg (35.0-45.0); BG PH 7.352 (7.350-7.450); BG PO2 182.9 mmHg (75.0-100.0); BG SAMPLE SITE ALINE; BG VENT MODE VENT - AC
[2022-10-21] MEDS: LEVOTHYROXINE SODIUM 25MCG TABLET PO SCH (08:48)
[2022-10-21] MEDS: MIDODRINE HCL 5MG TABLET PO SCH ×2 (08:48→18:12)
[2022-10-21] MEDS: MEROPENEM 1,000 MG in SODIUM CHLORIDE 0.9% 100 ML IV SCH ×2 (08:48→21:39)
[2022-10-21] MEDS: LACTOBACILLUS GG CAPSULE PO SCH (08:48)
[2022-10-21 09:36] LABS: NUCLEATED RED BLOOD CELLS 22 /100 WBC
[2022-10-21 09:42] LABS: PLATELET ESTIMATE MARKEDLY DECREASED
[2022-10-21 09:44] LABS: MEAN PLATELET VOLUME 8.8 fl (7.4-10.4); PLATELET 17 x1000/uL (130-400)
[2022-10-22] VITALS (107 sets, daily range): BP systolic 63–166; BP diastolic 27–101
[2022-10-22] MEDS: IPRATROPIUM/ALBUTEROL 0.5-3(2.5)MG/3ML NEB HHN SCH ×7 (00:12→23:50)
[2022-10-22] MEDS: MIDODRINE HCL 5MG TABLET PO SCH ×3 (00:30→17:45)
[2022-10-22] MEDS: DILTIAZEM HCL 60MG TABLET PO SCH ×4 (00:31→17:43)
[2022-10-22] MEDS: METOCLOPRAMIDE HCL 10MG/2ML VIAL IV SCH ×4 (00:32→17:44)
[2022-10-22] MEDS: PHENYLEPHRINE 100 MG in DEXT 5% WATER 240 ML IV PRN ×3 (03:09→20:46)
[2022-10-22] MEDS: INSULIN LISPRO 100 UNITS/ML SUBCUT SCH ×4 (06:00→17:43)
[2022-10-22] MEDS: BLOOD SUGAR DIAGNOSTIC STRIP TEST SCH ×4 (06:00→17:43)
[2022-10-22 06:25] LABS: HEMATOCRIT. 21.9 % (42.0-52.0); MEAN CORPUSCULAR HEMOGLOBIN 28.7 pg (28.0-32.0); MEAN CORPUSCULAR VOLUME 89.7 fL (80.0-94.0); MEAN PLATELET VOLUME 9.1 fl (7.4-10.4); RED BLOOD CELL COUNT 2.45 mill/uL (4.7-6.1); RED CELL DISTRIBUTION WIDTH 24.2 % (11.6-14.6)
[2022-10-22] MEDS: METHYLPREDNISOLONE SOD SUCC 125 MG/2 ML VIAL IV SCH ×3 (06:27→22:27)
[2022-10-22] MEDS: LACTULOSE 20G/30ML UDC PO SCH (06:28)
[2022-10-22 06:45] LABS: PLATELET 48 x1000/uL (130-400)
[2022-10-22 07:44] LABS: BG BASE EXCESS -5.2 mmol/L (-2.0-2.0); BG CARBOXYHEMOGLOBIN 0.6 % (0.5-1.5); BG DEOXYHEMOGLOBIN 2.1 % (0.0-5.0); BG FRACTION INSPIRED OXYGEN 100; BG HCO3 ACT 19.9 mmol/L (22.0-26.0); BG METHEMOGLOBIN 0.1 % (0.0-1.5); BG OXYGEN SATURATION 97.9 % (92.0-98.5); BG OXYHEMOGLOBIN 97.2 % (94.0-97.0); BG PCO2 36.9 mmHg (35.0-45.0); BG PH 7.349 (7.350-7.450); BG PO2 119.6 mmHg (75.0-100.0); BG VENT MODE VENT - AC/VC
[2022-10-22] MEDS: LIDOCAINE 5% PATCH TOP SCH (08:57)
[2022-10-22] MEDS ORDERED: CYANOCOBALAMIN 1000MCG TABLET PO SCH (09:00)
[2022-10-22] MEDS ORDERED: PHYTONADIONE 10MG/ML AMP PO NR (09:00)
[2022-10-22] MEDS: FUROSEMIDE 40MG/4ML VIAL IVP SCH (09:05)
[2022-10-22] MEDS: LACTOBACILLUS GG CAPSULE PO SCH (09:05)
[2022-10-22] MEDS: LEVOTHYROXINE SODIUM 25MCG TABLET PO SCH (09:06)
[2022-10-22] MEDS: MEROPENEM 1,000 MG in SODIUM CHLORIDE 0.9% 100 ML IV SCH ×2 (09:09→20:45)
[2022-10-22] MEDS ORDERED: LIDOCAINE HCL 1% 10 MG/ML 10ML VIAL ONE (10:02)
[2022-10-22] MEDS ORDERED: PHYTONADIONE 10 MG/10 ML ORALSYR PO NR (10:30)
[2022-10-22 10:39] LABS: NUCLEATED RED BLOOD CELLS 66 /100 WBC; PLATELET ESTIMATE MARKEDLY DECREASED
[2022-10-22 11:37] LABS: HEMATOCRIT 23.2 % (42.0-52.0); HEMOGLOBIN 7.4 g/dL (14.0-18.0)
[2022-10-22] MEDS ORDERED: LACTULOSE 20G/30ML UDC PO PRN (11:45)
[2022-10-22] MEDS: VASOPRESSIN 20 UNIT in SODIUM CHLORIDE 0.9% 99 ML IV PRN (17:04)
[2022-10-22] MEDS: NOREPINEPHRINE 32 MG in DEXTROSE 5% WATER 250 ML IV PRN (17:30)
[2022-10-22] MEDS: PANTOPRAZOLE SODIUM 40 MG/VIAL IV SCH (17:44)
[2022-10-22 20:20] LABS: HEMOGLOBIN 6.4 g/dL (14.0-18.0)
[2022-10-22 20:56] LABS: HEPATITIS B SURFACE ANTIGEN NEGATIVE
[2022-10-23] VITALS (105 sets, daily range): BP systolic 57–129; BP diastolic 28–84
[2022-10-23] MEDS: DILTIAZEM HCL 60MG TABLET PO SCH ×2 (00:05→05:33)
[2022-10-23] MEDS: METOCLOPRAMIDE HCL 10MG/2ML VIAL IV SCH ×4 (00:05→17:11)
[2022-10-23] MEDS: MIDODRINE HCL 5MG TABLET PO SCH ×3 (00:09→17:12)
[2022-10-23] MEDS: PHENYLEPHRINE 100 MG in DEXT 5% WATER 240 ML IV PRN ×5 (02:10→22:07)
[2022-10-23] MEDS: IPRATROPIUM/ALBUTEROL 0.5-3(2.5)MG/3ML NEB HHN SCH ×3 (04:12→12:31)
[2022-10-23] MEDS: INSULIN LISPRO 100 UNITS/ML SUBCUT SCH ×4 (05:33→17:48)
[2022-10-23] MEDS: METHYLPREDNISOLONE SOD SUCC 125 MG/2 ML VIAL IV SCH ×3 (05:33→21:38)
[2022-10-23] MEDS: BLOOD SUGAR DIAGNOSTIC STRIP TEST SCH ×4 (05:33→17:48)
[2022-10-23] MEDS: VASOPRESSIN 20 UNIT in SODIUM CHLORIDE 0.9% 99 ML IV PRN ×2 (05:45→19:05)
[2022-10-23 06:20] LABS: HEMATOCRIT. 31.5 % (42.0-52.0); HEMOGLOBIN. 10.2 g/dL (14.0-18.0); MEAN CORPUSCULAR HEMOGLOBIN 29.3 pg (28.0-32.0); MEAN CORPUSCULAR VOLUME 90.6 fL (80.0-94.0); MEAN PLATELET VOLUME 7.3 fl (7.4-10.4); RED BLOOD CELL COUNT 3.48 mill/uL (4.7-6.1); RED CELL DISTRIBUTION WIDTH 20.5 % (11.6-14.6)
[2022-10-23] MEDS: MEROPENEM 1,000 MG in SODIUM CHLORIDE 0.9% 100 ML IV SCH ×2 (08:59→21:38)
[2022-10-23 09:01] LABS: BG BASE EXCESS -10.9 mmol/L (-2.0-2.0); BG CARBOXYHEMOGLOBIN 0.1 % (0.5-1.5); BG DEOXYHEMOGLOBIN 9.4 % (0.0-5.0); BG FRACTION INSPIRED OXYGEN 100; BG HCO3 ACT 17.9 mmol/L (22.0-26.0); BG METHEMOGLOBIN 0.3 % (0.0-1.5); BG OXYGEN SATURATION 90.6 % (92.0-98.5); BG OXYHEMOGLOBIN 90.2 % (94.0-97.0); BG PCO2 53.6 mmHg (35.0-45.0); BG PH 7.142 (7.350-7.450); BG PO2 71.5 mmHg (75.0-100.0); BG SAMPLE SITE ALINE; BG TOTAL HEMOGLOBIN 10.5 g/dL (12.0-18.0); BG VENT MODE VENT - AC
[2022-10-23] MEDS: LIDOCAINE 5% PATCH TOP SCH (09:02)
[2022-10-23] MEDS: PANTOPRAZOLE SODIUM 40 MG/VIAL IV SCH ×2 (09:03→17:11)
[2022-10-23] MEDS: LEVOTHYROXINE SODIUM 25MCG TABLET PO SCH (09:04)
[2022-10-23] MEDS: LACTOBACILLUS GG CAPSULE PO SCH (09:04)
[2022-10-23 09:36] LABS: NUCLEATED RED BLOOD CELLS 88 /100 WBC
[2022-10-23 09:37] LABS: PLATELET ESTIMATE MARKEDLY DECREASED
[2022-10-23 09:42] LABS: PLATELET 21 x1000/uL (130-400)
[2022-10-23] MEDS: PHYTONADIONE 5 MG/5ML ORAL SYRINGE PO SCH (09:45)
[2022-10-23] MEDS: DILTIAZEM HCL 30MG TABLET NG SCH ×2 (12:15→17:11)
[2022-10-23 12:37] LABS: HEMATOCRIT 32.3 % (42.0-52.0); HEMOGLOBIN 10.3 g/dL (14.0-18.0)
[2022-10-23 18:16] LABS: HEMATOCRIT 31.7 % (42.0-52.0); HEMOGLOBIN 10.1 g/dL (14.0-18.0)
[2022-10-24] VITALS (96 sets, daily range): BP systolic 74–149; BP diastolic 42–118
[2022-10-24 00:11] LABS: HEMATOCRIT 29.6 % (42.0-52.0); HEMOGLOBIN 9.7 g/dL (14.0-18.0)
[2022-10-24 00:20] LABS: INR 1.4; PROTHROMBIN TIME 14.6 sec (9.6-11.0)
[2022-10-24] MEDS: DILTIAZEM HCL 30MG TABLET NG SCH ×5 (00:24→23:15)
[2022-10-24] MEDS: MIDODRINE HCL 5MG TABLET PO SCH ×3 (00:25→18:22)
[2022-10-24] MEDS: METOCLOPRAMIDE HCL 10MG/2ML VIAL IV SCH ×5 (00:25→23:15)
[2022-10-24] MEDS: PHENYLEPHRINE 100 MG in DEXT 5% WATER 240 ML IV PRN ×4 (03:32→21:19)
[2022-10-24 05:42] LABS: HEMATOCRIT. 32.2 % (42.0-52.0); HEMOGLOBIN. 10.1 g/dL (14.0-18.0); MEAN CORPUSCULAR HEMOGLOBIN 29.3 pg (28.0-32.0); MEAN CORPUSCULAR VOLUME 92.9 fL (80.0-94.0); MEAN PLATELET VOLUME 9.2 fl (7.4-10.4); RED BLOOD CELL COUNT 3.46 mill/uL (4.7-6.1); RED CELL DISTRIBUTION WIDTH 20.8 % (11.6-14.6)
[2022-10-24] MEDS: METHYLPREDNISOLONE SOD SUCC 125 MG/2 ML VIAL IV SCH ×3 (05:46→21:07)
[2022-10-24] MEDS: INSULIN LISPRO 100 UNITS/ML SUBCUT SCH ×5 (05:47→23:15)
[2022-10-24] MEDS: BLOOD SUGAR DIAGNOSTIC STRIP TEST SCH ×5 (05:47→23:15)
[2022-10-24] MEDS: VASOPRESSIN 20 UNIT in SODIUM CHLORIDE 0.9% 99 ML IV PRN ×2 (06:31→19:10)
[2022-10-24 07:54] LABS: NUCLEATED RED BLOOD CELLS 38 /100 WBC; PLATELET ESTIMATE MARKEDLY DECREASED
[2022-10-24 07:57] LABS: PLATELET 34 x1000/uL (130-400)
[2022-10-24] MEDS: LIDOCAINE 5% PATCH TOP SCH (09:00)
[2022-10-24] MEDS: MEROPENEM 1,000 MG in SODIUM CHLORIDE 0.9% 100 ML IV SCH (09:22)
[2022-10-24] MEDS: PANTOPRAZOLE SODIUM 40 MG/VIAL IV SCH ×2 (09:23→18:21)
[2022-10-24] MEDS: LEVOTHYROXINE SODIUM 25MCG TABLET PO SCH (09:23)
[2022-10-24] MEDS: LACTOBACILLUS GG CAPSULE PO SCH (09:23)
[2022-10-24] MEDS: PHYTONADIONE 5 MG/5ML ORAL SYRINGE PO SCH (09:25)
[2022-10-24 13:26] LABS: BG CARBOXYHEMOGLOBIN 0.3 % (0.5-1.5); BG DEOXYHEMOGLOBIN 5.3 % (0.0-5.0); BG FRACTION INSPIRED OXYGEN 80; BG HCO3 ACT 17.2 mmol/L (22.0-26.0); BG METHEMOGLOBIN 0.4 % (0.0-1.5); BG OXYGEN SATURATION 94.7 % (92.0-98.5); BG PH 7.219 (7.350-7.450); BG PO2 80.8 mmHg (75.0-100.0); BG SAMPLE SITE ALINE; BG TOTAL HEMOGLOBIN 10.3 g/dL (12.0-18.0); BG VENT MODE VENT - AC
[2022-10-24] MEDS ORDERED: VANCOMYCIN 500MG PREMIX 100 ML IV NR (14:00)
[2022-10-24] MEDS: NOREPINEPHRINE 32 MG in DEXTROSE 5% WATER 250 ML IV PRN (15:03)
[2022-10-24] MEDS ORDERED: SODIUM BICARBONATE 8.4% 1 MEQ/ML 50ML SYR IV NR (21:00)
[2022-10-25] VITALS (93 sets, daily range): BP systolic -8–179; BP diastolic -9–178
[2022-10-25] MEDS: MIDODRINE HCL 5MG TABLET PO SCH ×3 (00:11→17:04)
[2022-10-25] MEDS: METOCLOPRAMIDE HCL 10MG/2ML VIAL IV SCH ×4 (05:17→23:39)
[2022-10-25] MEDS: INSULIN LISPRO 100 UNITS/ML SUBCUT SCH ×4 (05:17→23:39)
[2022-10-25] MEDS: METHYLPREDNISOLONE SOD SUCC 125 MG/2 ML VIAL IV SCH ×3 (05:17→23:38)
[2022-10-25] MEDS: BLOOD SUGAR DIAGNOSTIC STRIP TEST SCH ×4 (05:17→23:39)
[2022-10-25] MEDS: DILTIAZEM HCL 30MG TABLET NG SCH ×4 (05:18→23:08)
[2022-10-25] MEDS: PHENYLEPHRINE 100 MG in DEXT 5% WATER 240 ML IV PRN ×4 (05:30→23:13)
[2022-10-25 05:42] LABS: HEMATOCRIT. 31.4 % (42.0-52.0); MEAN CORPUSCULAR HEMOGLOBIN 29.2 pg (28.0-32.0); MEAN CORPUSCULAR VOLUME 91.3 fL (80.0-94.0); MEAN PLATELET VOLUME 7.9 fl (7.4-10.4); RED BLOOD CELL COUNT 3.43 mill/uL (4.7-6.1); RED CELL DISTRIBUTION WIDTH 20.2 % (11.6-14.6)
[2022-10-25 06:01] LABS: PLATELET 10 x1000/uL (130-400)
[2022-10-25] MEDS: VASOPRESSIN 20 UNIT in SODIUM CHLORIDE 0.9% 99 ML IV PRN ×2 (06:09→19:27)
[2022-10-25] MEDS: LEVOTHYROXINE SODIUM 25MCG TABLET PO SCH (08:27)
[2022-10-25] MEDS: LACTOBACILLUS GG CAPSULE PO SCH (08:27)
[2022-10-25] MEDS: PANTOPRAZOLE SODIUM 40 MG/VIAL IV SCH ×2 (08:27→17:03)
[2022-10-25] MEDS: PHYTONADIONE 5 MG/5ML ORAL SYRINGE PO SCH (08:28)
[2022-10-25] MEDS: LIDOCAINE 5% PATCH TOP SCH (08:29)
[2022-10-25 08:52] LABS: BG BASE EXCESS -13.1 mmol/L (-2.0-2.0); BG CARBOXYHEMOGLOBIN 0.6 % (0.5-1.5); BG DEOXYHEMOGLOBIN 10.9 % (0.0-5.0); BG FRACTION INSPIRED OXYGEN 80; BG HCO3 ACT 15.4 mmol/L (22.0-26.0); BG METHEMOGLOBIN 0.3 % (0.0-1.5); BG OXYHEMOGLOBIN 88.2 % (94.0-97.0); BG PCO2 46.1 mmHg (35.0-45.0); BG PH 7.141 (7.350-7.450); BG PO2 61.6 mmHg (75.0-100.0); BG SAMPLE SITE ALINE; BG TOTAL HEMOGLOBIN 10.6 g/dL (12.0-18.0); BG VENT MODE VENT - AC VC
[2022-10-25 08:54] LABS: NUCLEATED RED BLOOD CELLS 29 /100 WBC; PLATELET ESTIMATE MARKEDLY DECREASED
[2022-10-25] MEDS ORDERED: MEROPENEM 1,000 MG in SODIUM CHLORIDE 0.9% 100 ML IV SCH (09:00)
[2022-10-25] MEDS: NOREPINEPHRINE 32 MG in DEXTROSE 5% WATER 250 ML IV PRN (16:23)
[2022-10-26] MEDS ORDERED: MEROPENEM 500 MG in SODIUM CHLORIDE 0.9% 50 ML IV SCH (09:00)
[2022-10-26 19:08] LABS: ANTI-MYELOPEROXIDASE AB < 0.2 units (0.0-0.9); ANTI-PROTEINASE 3 ABS < 0.2 units (0.0-0.9)
[2022-10-27 13:11] LABS: ATYPICAL P-ANCA <1:20 titer (Neg:<1:20); CYTOPLASMIC C-ANCA <1:20 titer (Neg:<1:20); PERINUCLEAR P-ANCA <1:20 titer (Neg:<1:20)
== END 2022-10-26 04:00 | DRG 870 ==
LOC: ER 11:46 → 6EST 19:39 → EDBEDREQ 19:43 → EDBEDREQTM 19:43 → 7WST 10-01 00:15 → CVICU 10-11 09:43
PROVIDERS: ADMIT Internal Medicine Nephrology; ATTEND Internal Medicine Nephrology
PROC: 05PYX3Z Removal of Infusion Device from Upper Vein, External Approach (ICD-10-PCS; 2022-09-30)
PROC: 02HV33Z Insertion of Infusion Device into Superior Vena Cava, Percutaneous Approach (ICD-10-PCS; 2022-10-12)
PROC: B548ZZA Ultrasonography of Superior Vena Cava, Guidance (ICD-10-PCS; 2022-10-12)
PROC: 5A09457 Assistance with Respiratory Ventilation, 24-96 Consecutive Hours, Continuous Positive Airway Pressure (ICD-10-PCS; 2022-10-13)
PROC: 5A1955Z Respiratory Ventilation, Greater than 96 Consecutive Hours (ICD-10-PCS; principal; 2022-10-15)
PROC: 0BH17EZ Insertion of Endotracheal Airway into Trachea, Via Natural or Artificial Opening (ICD-10-PCS; 2022-10-15)
PROC: 30233R1 Transfusion of Nonautologous Platelets into Peripheral Vein, Percutaneous Approach (ICD-10-PCS; 2022-10-19)
PROC: 30233N1 Transfusion of Nonautologous Red Blood Cells into Peripheral Vein, Percutaneous Approach (ICD-10-PCS; 2022-10-22)
PROC: 02HV33Z Insertion of Infusion Device into Superior Vena Cava, Percutaneous Approach (ICD-10-PCS; 2022-10-22)
PROC: B548ZZA Ultrasonography of Superior Vena Cava, Guidance (ICD-10-PCS; 2022-10-22)
PROC: 5A1D70Z Performance of Urinary Filtration, Intermittent, Less than 6 Hours Per Day (ICD-10-PCS; 2022-10-22)
PROC: 5A1D70Z Performance of Urinary Filtration, Intermittent, Less than 6 Hours Per Day (ICD-10-PCS; 2022-10-23)
DX: A41.9 Sepsis, unspecified organism (principal); E43 Unspecified severe protein-calorie malnutrition; G93.41 Metabolic encephalopathy; N18.6 End stage renal disease; J96.01 Acute respiratory failure with hypoxia; N17.0 Acute kidney failure with tubular necrosis; R65.21 Severe sepsis with septic shock; J69.0 Pneumonitis due to inhalation of food and vomit; S22.39XA Fracture of one rib, unspecified side, initial encounter for closed fracture; E87.1 Hypo-osmolality and hyponatremia; I42.9 Cardiomyopathy, unspecified; M46.26 Osteomyelitis of vertebra, lumbar region; K56.600 Partial intestinal obstruction, unspecified as to cause; K56.7 Ileus, unspecified; K35.80 Unspecified acute appendicitis; E87.0 Hyperosmolality and hypernatremia; D61.818 Other pancytopenia; I48.92 Unspecified atrial flutter; R64 Cachexia; I12.0 Hypertensive chronic kidney disease with stage 5 chronic kidney disease or end stage renal disease; E83.42 Hypomagnesemia; E03.9 Hypothyroidism, unspecified; E11.22 Type 2 diabetes mellitus with diabetic chronic kidney disease; F03.90 Unspecified dementia, unspecified severity, without behavioral disturbance, psychotic disturbance, mood disturbance, and anxiety; M46.46 Discitis, unspecified, lumbar region; R13.10 Dysphagia, unspecified; R31.0 Gross hematuria; E88.09 Other disorders of plasma-protein metabolism, not elsewhere classified; E78.00 Pure hypercholesterolemia, unspecified; I25.10 Atherosclerotic heart disease of native coronary artery without angina pectoris; R62.7 Adult failure to thrive; R26.9 Unspecified abnormalities of gait and mobility; D63.1 Anemia in chronic kidney disease; I34.0 Nonrheumatic mitral (valve) insufficiency; I48.0 Paroxysmal atrial fibrillation; D69.6 Thrombocytopenia, unspecified; E11.69 Type 2 diabetes mellitus with other specified complication; Z66 Do not resuscitate; Z68.29 Body mass index [BMI] 29.0-29.9, adult; Z79.899 Other long term (current) drug therapy; Z95.2 Presence of prosthetic heart valve; Z79.4 Long term (current) use of insulin; Z90.5 Acquired absence of kidney; Z93.1 Gastrostomy status; Z99.2 Dependence on renal dialysis; Z85.068 Personal history of other malignant neoplasm of small intestine; Z85.528 Personal history of other malignant neoplasm of kidney; Z90.49 Acquired absence of other specified parts of digestive tract; Z99.3 Dependence on wheelchair; X58.XXXA Exposure to other specified factors, initial encounter; Y93.89 Activity, other specified; Y92.89 Other specified places as the place of occurrence of the external cause; Y99.8 Other external cause status
CPT/HCPCS: 31500; 36415; 36556; 36573; 36589; 36600; 70551; 71045; 71250; 72100; 72141; 72146; 72148; 74018; 74176; 76604; 76770; 76937; 80048; 80053; 80061; 80076; 80202; 81003; 82270; 82330; 82375; 82378; 82550; 82784; 82805; 82962; 83036; 83520; 83605; 83735; 84100; 84145; 84153; 84443; 84484; 85014; 85018; 85025; 85044; 85049; 85362; 85379; 85384; 85651; 86038; 86256; 86334; 86705; 86709; 86803; 86850; 86900; 86920; 87070; 87106; 87340; 87426; 90935; 92610; 93005; 93306; 94002; 94003; 94640; 94660; 97110; 97162; 97166; 99291; A6261; A9577; C1725; C1752; C9113; J0282; J0330; J0456; J0692; J0696; J1642; J1650; J1815; J1940; J2185; J2250; J2270; J2354; J2370; J2405; J2765; J2930; J3010; J3370; J3430; J3475; J3480; J3490; J7030; J7042; J7050; J7060; J7608; J8540; P9016; P9034; P9047; G0103; P9036